=== PATIENT | female | born 1945 | race Caucasian/White ===

== ENCOUNTER 2018-01-11 15:10 | Emergency (ER) | payer OTHER, MEDICARE ==
[2018-01-11] MEDS ORDERED: SODIUM CHLORIDE 1,000 ML IV STA (16:52)
[2018-01-11 17:06] VITALS: BP 154/74; PULSE 62; TEMP 98.1; BMI 19.1
--- NOTE | 2018-01-11 17:17 | PDOC ---
History of Present Illness - General History Source: Patient Exam Limitations: No Limitations - History of Present Illness Initial Comments: 01/11/18 18:25 The patient is a 72 year old female with a significant past medical history of MVP, UTI, and diverticulitis who presents to the emergency department for evaluation of a 1 week history of generalized weakness. The patient reports generalized weakness and dizziness started after having a bowel movement that felt forced in nature after eating breakfast on Thursday of last week (01/04). She reports associated symptoms of lack of appetite, dizziness, and trembling. She states she felt well before that bowel movement. She reports she visited her GI doctor could not attribute any GI disorders and advised her to visit the ED for further evaluation The patient denies chest pain, shortness of breath, headache, and dizziness. Denies fevers, chills, nausea, vomiting, diarrhea, and constipation. Denies dysuria, frequency, urgency, and hematuria. Allergies: Doxycycline, Metronidazole,metronidazole HCl, brimonidine tartrate, and hydromorphone HCl. Past surgical history: Colon resection for Diverticulitis (2011) ileostomy Social history: Former smoker 1972. No reported alcohol or drug use. PCP: Dr. Som Samano ([phone]) GI: Dr. Chapin Harman <Jose Schroeder - Last Filed: 01/11/18 18:25> - General History Source: Patient Exam Limitations: No Limitations <Clif Muniz - Last Filed: 01/11/18 18:58> - General Chief Complaint: Lethargy Stated Complaint: LETHARGIC Time Seen by Provider: 01/11/18 16:39 Past History <Jose Schroeder - Last Filed: 01/11/18 18:25> - Past Medical History Anemia: No Asthma: No Cancer: No Cardiac Disorders: Yes (MVP) CVA: No COPD: No CHF: No Dementia: No Diabetes: No GI Disorders: Yes (DIVERTICULITIS) Disorders: Yes (UTI) HTN: No Hypercholesterolemia: No Liver Disease: No Seizures: No Thyroid Disease: No - Surgical History Abdominal Surgery: Yes (COLON RESECTION, ileostomy 03/03/12) Appendectomy: No Cardiac Surgery: No Cholecystectomy: No Lung Surgery: No Neurologic Surgery: No Orthopedic Surgery: No - Suicide/Smoking/Psychosocial Hx Smoking Status: No Smoking History: Never smoked Have you smoked in the past 12 months: No Number of Cigarettes Smoked Daily: 0 If you are a former smoker, when did you quit?: 1972 Information on smoking cessation initiated: No Hx Alcohol Use: No Drug/Substance Use Hx: No Substance Use Type: None Hx Substance Use Treatment: No <Clif Muniz - Last Filed: 01/11/18 18:58> - Past Medical History Allergies/Adverse Reactions: Allergies Allergy/AdvReac Type Severity Reaction Status Date / Time doxycycline Allergy Severe Rash Verified 01/11/18 16:43 metronidazole [From Flagyl] Allergy Intermediate Low Blood Verified 01/11/18 16: 43 Pressure Metronidazole HCl Allergy Intermediate Verified 01/11/18 16:43 [From Flagyl] brimonidine tartrate Allergy heart Verified 01/11/18 16:43 [From Alphagan P] palpitations hydromorphone HCl AdvReac Severe Low Blood Verified 01/11/18 16:43 [From Dilaudid] Pressure Home Medications: Ambulatory Orders NK [No Known Home Medication] 01/11/18 Review of Systems - Review of Systems Able to Perform ROS?: Yes Comments:: GENERAL/CONSTITUTIONAL: (+)Weakness. No fever or chills. HEAD, EYES, EARS, NOSE AND THROAT: No change in vision. No ear pain or discharge. No sore throat. CARDIOVASCULAR: No chest pain or shortness of breath. RESPIRATORY: No cough, wheezing, or hemoptysis. GASTROINTESTINAL: No nausea, vomiting, diarrhea or constipation. GENITOURINARY: No dysuria, frequency, or change in urination. MUSCULOSKELETAL: No joint or muscle swelling or pain. No neck or back pain. SKIN: No rash NEUROLOGIC: (+)Dizziness. No headache, vertigo, loss of consciousness, or change in strength/sensation. ENDOCRINE: No increased thirst. No abnormal weight change. HEMATOLOGIC/LYMPHATIC: No anemia, easy bleeding, or history of blood clots. ALLERGIC/IMMUNOLOGIC: No hives or skin allergy. <Jose Schroeder - Last Filed: 01/11/18 18:25> *Physical Exam - Vital Signs Last Vital Signs Temp Pulse Resp BP Pulse Ox 98.1 F 62 16 154/74 100 01/11/18 16:39 01/11/18 16:39 01/11/18 16:39 01/11/18 16:39 01/11/18 16:39 - Physical Exam Comments: GENERAL: Awake, alert, and fully oriented, in no acute distress HEAD: No signs of trauma EYES: PERRLA, EOMI, sclera anicteric, conjunctiva clear ENT: Auricles normal inspection, hearing grossly normal, nares patent, Moist mucosa NECK: Normal ROM, supple, no JVD, or masses LUNGS: Breath sounds equal, clear to auscultation bilaterally. No wheezes, and no crackles HEART: Regular rate and rhythm, normal S1 and S2, no murmurs, rubs or gallops ABDOMEN: Soft, nontender. No guarding, no rebound. No masses EXTREMITIES: Normal range of motion, no edema. No clubbing or cyanosis. No cords, erythema, or tenderness NEUROLOGICAL: Cranial nerves II through XII grossly intact. Normal speech, normal gait SKIN: Warm, Dry, normal turgor, no rashes or lesions noted. <Jose Schroeder - Last Filed: 01/11/18 18:25> - Vital Signs Last Vital Signs Temp Pulse Resp BP Pulse Ox 98.1 F 62 16 154/74 100 01/11/18 16:39 01/11/18 16:39 01/11/18 16:39 01/11/18 16:39 01/11/18 16:39 <Clif Muniz - Last Filed: 01/11/18 18:58> Heart Score/ECG Review #1 ECG reviewed & interpreted by me at: 18:00 01/11/18 18:44 NSR 74, no std/eren, normal axis, normal intervals, QTC 437 msec <Clif Muniz - Last Filed: 01/11/18 18:58> ED Treatment Course - LABORATORY CBC & Chemistry Diagram: 01/11/18 17:40 01/11/18 17:40 - ADDITIONAL ORDERS Additional order review: Laboratory Results 01/11/18 01/11/18 01/11/18 17:40 17:40 17:25 PT with INR 12.2 INR 1.09 PTT (Actin FS) 27.5 Sodium 136 Potassium 4.1 Chloride 103 Carbon Dioxide 26 Anion Gap 7 L BUN 10 Creatinine < 0.8 Creat Clearance w eGFR > 60 Random Glucose 103 Calcium 9.1 Magnesium 1.9 Total Bilirubin 0.4 D AST 23 ALT 15 Alkaline Phosphatase 46 Total Protein 6.6 Albumin 4.3 Urine Color Yellow Urine Appearance Clear Urine pH 6.0 Ur Specific [place] <= 1.005 Urine Protein Negative Urine Glucose (UA) Negative Urine Ketones Negative Urine Blood Trace-lysed H Urine Nitrite Negative Urine Bilirubin Negative Urine Urobilinogen 0.2 Ur Leukocyte Esterase Negative Urine RBC 0-2 Urine WBC 0-1 Urine Bacteria Few 01/11/18 17:40 RBC 4.43 MCV 93.3 MCHC 33.7 RDW 12.4 MPV 8.4 Neutrophils % 52.0 Lymphocytes % 37.4 Monocytes % 8.9 Eosinophils % 1.0 Basophils % 0.7 - Medications Given in the ED: ED Medications Discontinued Medications Generic Name Dose Route Start Last Admin Trade Name Freq PRN Reason Stop Dose Admin Sodium Chloride 1,000 mls @ 1,000 mls/hr 01/11/18 16:52 01/11/18 17:40 Normal Saline - IV 01/11/18 17:51 1,000 mls/hr ASDIR STA Administration <Jose Schroeder - Last Filed: 01/11/18 18:25> - LABORATORY CBC & Chemistry Diagram: 01/11/18 17:40 01/11/18 17:40 - RADIOLOGY Radiology Studies Ordered: Category Date Time Status CHEST PA & LAT [RAD] Stat Radiology 01/11/18 16:49 Ordered <Clif Muniz - Last Filed: 01/11/18 18:58> Medical Decision Making - Medical Decision Making 01/11/18 17:13 A portion of this note was documented by scribe services under my direction. I have reviewed the details of the note, within reason, and agree with the documentation with the following case summary and management plan written by me. Patient treated in the ED. Nursing notes are reviewed and incorporated into the medical decision-making. Vital signs reviewed. Peripheral IV access obtained by the nurse, laboratory studies are drawn and sent, reviewed and interpreted by myself. Vital Signs Temp Pulse Resp BP Pulse Ox 98.1 F 62 16 154/74 100 01/11/18 16:39 01/11/18 16:39 01/11/18 16:39 01/11/18 16:39 01/11/18 16:39 72-year-old female with past medical history of diverticulitis status post colon resection, no other medical problems presents with one week of weakness. Patient noted one week ago that she felt generally fatigued and weak without any focal symptoms. The patient states that she went to move her bowels one week ago and since that she can feel generally weak. Denies abdominal pain, chest pain, short of breath, fevers, chills, cough, vomiting, diarrhea, dysuria. Patient had visited her early breastfeeding care specialist, Dr. Chapin Harman, and according to the patient, was unlikely to be related to GI. Patient was sent to the ER for an evaluation. The patient generally weak. Differential includes metabolic disarray, infectious , cardiac, thyroid disorder. We'll obtain blood work including EKG, chest x-ray , labs, urinalysis and reassess. 01/11/18 18:53 CBC, BMP 01/11/18 17:40 01/11/18 17:40 CMP Sodium 136 mmol/L (136-145) 01/11/18 17:40 Potassium 4.1 mmol/L (3.5-5.1) 01/11/18 17:40 Chloride 103 mmol/L (98-107) 01/11/18 17:40 Carbon Dioxide 26 mmol/L (22-28) 01/11/18 17:40 Anion Gap 7 (8-16) L 01/11/18 17:40 BUN 10 mg/dl (7-18) 01/11/18 17:40 Creatinine < 0.8 mg/dl (0.6-1.3) 01/11/18 17:40 Creat Clearance w eGFR > 60 (>60) 01/11/18 17:40 Random Glucose 103 mg/dl (74-106) 01/11/18 17:40 Calcium 9.1 mg/dl (8.4-10.2) 01/11/18 17:40 Magnesium 1.9 mg/dL (1.8-2.4) 01/11/18 17:40 Total Bilirubin 0.6 mg/dl (0.2-1.0) D 01/11/18 17:40 AST 23 U/L (10-42) 01/11/18 17:40 ALT 15 U/L (10-40) 01/11/18 17:40 Alkaline Phosphatase 46 U/L (32-92) 01/11/18 17:40 Troponin I < 0.03 ng/ml (0.00-0.06) 01/11/18 17:40 Total Protein 6.6 g/dl (6.4-8.3) 01/11/18 17:40 Albumin 4.3 g/dl (3.5-5.0) 01/11/18 17:40 Urine Test Results Urine Color Yellow 01/11/18 17:25 Urine Appearance Clear 01/11/18 17:25 Urine pH 6.0 (4.5-8) 01/11/18 17:25 Ur Specific [place] <= 1.005 (1.005-1.025) 01/11/18 17:25 Urine Protein Negative (NEGATIVE) 01/11/18 17:25 Urine Glucose (UA) Negative (NEGATIVE) 01/11/18 17:25 Urine Ketones Negative (NEGATIVE) 01/11/18 17:25 Urine Blood Trace-lysed (NEGATIVE) H 01/11/18 17:25 Urine Nitrite Negative (NEGATIVE) 01/11/18 17:25 Urine Bilirubin Negative (NEGATIVE) 01/11/18 17:25 Ur Leukocyte Esterase Negative (NEGATIVE) 01/11/18 17:25 Urine RBC 0-2 /hpf (0-3) 01/11/18 17:25 Urine WBC 0-1 (0-5) 01/11/18 17:25 Urine Bacteria Few /hpf (NEGATIVE) 01/11/18 17:25 Chest xray reviewed. No acute findings. TSH is still pending. It is unclear what the etiology of the patient's weaknesses. The thyroid panel is still pending but the patient states that she can call back and follow-up with the results. I will touch base with her tomorrow in regards to the thyroid panel. I've instructed the patient to call her primary care doctor tomorrow for rapid follow-up. She developed any chest pain or short of breath that she should return to the ER. There is no acute symptoms at the moment. Will have patient follow up with PMD. Return precautions given. I discussed the physical exam findings, ancillary test results and final diagnoses with the patient. I answered all of the patient's questions. The patient was satisfied with the care received and felt comfortable with the discharge plan and treatment plan. The patient will call their primary care physician within 24 hours to arrange follow-up and will return to the Emergency Department with any new, persistant or worsening symptoms. <Clif Muniz - Last Filed: 01/11/18 18:58> *DC/Admit/Observation/Transfer - Attestations Scribe Attestion: Documentation prepared by Jose Schroeder, acting as medical office technology instructor for Clif Muniz MD. <Jose Schroeder - Last Filed: 01/11/18 18:25> - Discharge Dispostion Admit: No <Clif Muniz - Last Filed: 01/11/18 18:58> Diagnosis at time of Disposition: Weakness - Discharge Dispostion Condition at time of disposition: Stable - Referrals Referrals: Som Samano MD [Primary Care Provider] - - Patient Instructions Printed Discharge Instructions: DI for Muscle Weakness Additional Instructions: Please drink plenty of fluids and rest. Your thyroid panel is still pending. You may call back at [phone] for the official results. It is important that you follow up with Dr. Samano. Call tomorrow to schedule an appointment. If you have chest pain, shortness of breath, fever, please return to the ER for further evaluation. - Post Discharge Activity
[2018-01-11 17:37] LABS: URINE APPEARANCE Clear; URINE BILIRUBIN Negative (NEGATIVE); URINE GLUCOSE (UA) Negative (NEGATIVE); URINE KETONE Negative (NEGATIVE); URINE LEUK ESTERASE Negative (NEGATIVE); URINE NITRITE Negative (NEGATIVE); URINE PROTEIN Negative (NEGATIVE); URINE UROBILINOGEN 0.2 (0.2-1.0)
[2018-01-11 17:39] LABS: URINE COLOR YELLOW
[2018-01-11 18:04] LABS: BASO % 0.7 % (0-2.0); HEMATOCRIT 41.4 % (32.4-45.2); HEMOGLOBIN 13.9 GM/dl (10.7-15.3); LYMPH % 37.4 % (8-40); MCH 31.5 pg (25.7-33.7); MCHC 33.7 g/dl (32.0-36.0); MEAN CELL VOLUME 93.3 fl (80-96); MEAN PLT VOLUME 8.4 fl (7.5-11.1); MONO % 8.9 % (3.8-10.2); PLATELET COUNT 214 K/MM3 (134-434); RBC 4.43 M/mm3 (3.60-5.2); RDW 12.4 % (11.6-15.6)
[2018-01-11 18:14] LABS: ACTIVATED PTT 27.5 SECONDS (24.0-38.9)
[2018-01-11 18:16] LABS: ALBUMIN 4.3 g/dl (3.5-5.0); ALK PHOS 46 U/L (32-92); ANION GAP 7 (8-16); BLOOD UREA NITROGEN 10 mg/dl (7-18); CALCIUM 9.1 mg/dl (8.4-10.2); CHLORIDE 103 mmol/L (98-107); CO2 26 mmol/L (22-28); GLUCOSE,RANDOM 103 mg/dl (74-106); MAGNESIUM 1.9 mg/dL (1.8-2.4); POTASSIUM 4.1 mmol/L (3.5-5.1); SGOT/AST 23 U/L (10-42); SGPT/ALT 15 U/L (10-40); SODIUM 136 mmol/L (136-145); TOT PROT 6.6 g/dl (6.4-8.3)
[2018-01-11 18:18] LABS: CREATININE < 0.8 mg/dl (0.6-1.3)
[2018-01-11 18:19] LABS: INR 1.09 (0.82-1.09); PROTHROMBIN TIME (PATIENT) 12.2 SEC (10.2-13.0)
[2018-01-11 18:25] LABS: URINE BACTERIA FEW /hpf (NEGATIVE); URINE RBC 0-2 /hpf (0-3); URINE WBC 0-1 (0-5)
[2018-01-11 18:38] LABS: BILIRUBIN,TOTAL 0.6 mg/dl (0.2-1.0)
--- NOTE | 2018-01-12 09:56 | EKG ---
Test Reason : Blood Pressure : / mmHG Vent. Rate : 074 BPM Atrial Rate : 074 BPM P-R Int : 180 ms QRS Dur : 090 ms QT Int : 394 ms P-R-T Axes : 068 -03 063 degrees QTc Int : 437 ms NORMAL SINUS RHYTHM NORMAL ECG NO PREVIOUS ECGS AVAILABLE Confirmed by MD Magdalena, Bill ([id number]) on 01/12/2018 9:56:00 AM Referred By: LISA Confirmed By:Bill Nichols MD
== END 2018-01-11 19:09 | disposition home or self-care (01) ==
LOC: FER 15:10
PROC: 3E0337Z Introduction of Electrolytic and Water Balance Substance into Peripheral Vein, Percutaneous Approach (ICD-10-PCS; principal; 2018-01-11)
DX: M62.81 Muscle weakness (generalized) (principal); I34.1 Nonrheumatic mitral (valve) prolapse; Z87.440 Personal history of urinary (tract) infections; Z88.8 Allergy status to other drugs, medicaments and biological substances
CPT/HCPCS: 36415; 71046-TC-FY; 80053; 81003; 81015; 83735; 84443; 84484; 85025; 85610; 85730; 87086; 93005; 96360; 99284-25; J7030

== ENCOUNTER 2018-03-04 05:42 | Emergency (ER) | payer OTHER, MEDICARE ==
[2018-03-04 05:52] VITALS: BMI 19.1
--- NOTE | 2018-03-04 06:51 | PDOC ---
History of Present Illness - General History Source: Patient Exam Limitations: No Limitations - History of Present Illness Initial Comments: 03/04/18 06:51 This is a 72-year-old female with history of vasovagal syncope in the past who has been experiencing GI discomfort bloating gas and intermittent diarrhea over the past several months. Patient saw her primary care Dr. Dr. Samano wouldn't take her to get a CAT scan. Patient was drinking the oral contrast when she began to feel nauseous and headed down the torres towards the bathroom and on her way to the bathroom she said she passed out. Patient did not hit her head. Thinks she was out less than a minute and did not injure herself. Patient denied any chest pain, shortness of breath. Patient said she has been very weak because she is been unable to eat secondary to her GI issues. PAST MEDICAL HISTORY: no significant history PAST SURGICAL HISTORY: no significant history FAMILY HISTORY: no pertinant history SOCIAL HISTORY: Pt lives with family and is employed. MEDICATIONS: reviewed ALLERGIES: As per nursing notes Review of Systems General: No fevers or chills, no weakness, no weight loss HEENT: No change in vision. No sore throat,. No ear pain CardioVascular: No chest pain or shortness of breath Respiratory:No cough, or wheezing. Gastrointestinal: + nausea, vomitting, diarrhea or constipation, No rectal bleeding Genitourinary: No dysuria, hematuria, or frequency Musculoskeletal: No joint or muscle pain or swelling Neurologic: No headache, vertigo, syncope as per history of present illness Psychiatric: nor depression Skin: No rashes or easy bruising Endocrine: no increased thirst or abnormal weight change Allergic: no skin or latex allergy All other systems reviewed and normal Exam: General: Well-nourished well-developed individual, no acute distress HEENT: Throat: Normal, tonsils normal, no erythema or exudate Neck: Supple, no meningeal signs, no lymphadenopathy Eyes::Pupils equal reactive and round, extraocular motion intact Chest: Nontender to palpation Cardiac: S1-S2 normal, regular rate and rhythm, no murmurs rubs or gallops, bradycardic Respiratory: Lungs clear to auscultation bilateral Abdomen: Soft, nondistended, normal bowel sounds, nontender to palpation diffusely Extremities: Warm, dry, no cyanosis, clubbing, or edema Skin: No rashes Neuro: Alert and oriented x3, CN II - XII intact, nonfocal exam with normal strength, normal sensation, normal reflexes, normal gait, Psych: Normal mood and affect 07:00 because patient is transferred to Dr. Chao at 7 AM. Her workup is still pending. Case discussed in detail with oncoming Emergency Physician including history, physical exam and ancillary studies. Oncoming Emergency Physician has assumed care for the patient and will complete the evaluation and treatment. Patient is aware of the plan. Pt is clinically unchanged and stable. <Vicky Abrams I - Last Filed: 03/04/18 06:34> <Tahira Hidalgo - Last Filed: 03/04/18 10:46> - General Chief Complaint: Weakness Stated Complaint: "I PASSED OUT WHILE DOING A TEST PREP" Time Seen by Provider: 03/04/18 06:34 Past History - Past Medical History Anemia: No Asthma: No Cancer: No Cardiac Disorders: Yes (MVP) CVA: No COPD: No CHF: No Dementia: No Diabetes: No GI Disorders: Yes (DIVERTICULITIS) Disorders: Yes (UTI) HTN: No Hypercholesterolemia: No Liver Disease: No Seizures: No Thyroid Disease: No - Surgical History Abdominal Surgery: Yes (COLON RESECTION, ileostomy 03/03/12) Appendectomy: No Cardiac Surgery: No Cholecystectomy: No Lung Surgery: No Neurologic Surgery: No Orthopedic Surgery: No - Suicide/Smoking/Psychosocial Hx Smoking Status: No Smoking History: Never smoked Have you smoked in the past 12 months: No Number of Cigarettes Smoked Daily: 0 If you are a former smoker, when did you quit?: 1972 Information on smoking cessation initiated: No Hx Alcohol Use: No Drug/Substance Use Hx: No Substance Use Type: None Hx Substance Use Treatment: No <Vicky Abrams I - Last Filed: 03/04/18 06:34> <Tahira Hidalgo - Last Filed: 03/04/18 10:46> - Past Medical History Allergies/Adverse Reactions: Allergies Allergy/AdvReac Type Severity Reaction Status Date / Time doxycycline Allergy Severe Rash Verified 01/11/18 16:43 metronidazole [From Flagyl] Allergy Intermediate Low Blood Verified 01/11/18 16: 43 Pressure Metronidazole HCl Allergy Intermediate Verified 01/11/18 16:43 [From Flagyl] brimonidine tartrate Allergy heart Verified 01/11/18 16:43 [From Alphagan P] palpitations hydromorphone HCl AdvReac Severe Low Blood Verified 01/11/18 16:43 [From Dilaudid] Pressure Home Medications: Ambulatory Orders NK [No Known Home Medication] 01/11/18 *Physical Exam - Vital Signs Last Vital Signs Temp Pulse Resp BP Pulse Ox 98 F 50 L 14 122/46 98 03/04/18 05:49 03/04/18 05:49 03/04/18 05:49 03/04/18 05:49 03/04/18 05:49 <Vicky Abrams I - Last Filed: 03/04/18 06:34> - Vital Signs Last Vital Signs Temp Pulse Resp BP Pulse Ox 98.1 F 64 16 143/62 99 03/04/18 10:14 03/04/18 10:14 03/04/18 10:14 03/04/18 10:14 03/04/18 10:14 <Tahira Hidalgo - Last Filed: 03/04/18 10:46> Heart Score/ECG Review - ECG Impressions Comment:: EKG read 07:47- NSR 63 bpm, no acute ST/T changes <Tahira Hidalgo - Last Filed: 03/04/18 10:46> ED Treatment Course - LABORATORY CBC & Chemistry Diagram: 03/04/18 06:42 03/04/18 06:42 - ADDITIONAL ORDERS Additional order review: Laboratory Results 03/04/18 03/04/18 03/04/18 09:00 06:45 06:42 Sodium Potassium Chloride Carbon Dioxide Anion Gap BUN Creatinine Creat Clearance w eGFR Random Glucose Calcium Total Bilirubin AST ALT Alkaline Phosphatase Creatine Kinase 62 Troponin I < 0.03 Total Protein Albumin Urine Color Nancy Urine Appearance Clear Urine pH 5.5 Ur Specific [place] 1.010 Urine Protein Negative Urine Glucose (UA) Negative Urine Ketones 1+ H Urine Blood 1+ H Urine Nitrite Negative Urine Bilirubin Negative Urine Urobilinogen 0.2 Ur Leukocyte Esterase Negative Urine RBC 1-3 Urine WBC 0-1 03/04/18 06:42 Sodium 137 Potassium 4.1 Chloride 106 Carbon Dioxide 26 Anion Gap 5 L BUN 13 Creatinine 0.7 Creat Clearance w eGFR > 60 Random Glucose 104 Calcium 9.0 Total Bilirubin 1.1 H AST 24 ALT 17 Alkaline Phosphatase 41 Creatine Kinase Troponin I Total Protein 6.7 Albumin 4.1 Urine Color Urine Appearance Urine pH Ur Specific [place] Urine Protein Urine Glucose (UA) Urine Ketones Urine Blood Urine Nitrite Urine Bilirubin Urine Urobilinogen Ur Leukocyte Esterase Urine RBC Urine WBC 03/04/18 06:42 RBC 4.38 MCV 94.8 MCHC 33.2 RDW 13.1 MPV 7.6 Neutrophils % 63.9 Lymphocytes % 26.7 Monocytes % 7.6 Eosinophils % 1.2 Basophils % 0.6 <Tahira Hidalgo - Last Filed: 03/04/18 10:46> Medical Decision Making - Medical Decision Making 03/04/18 10:19 Late entry. Patient received at 7am shift change. She presented with syncopal event just [employer]. Hx of prior similar events. Labs reviewed, all wnl. CTH reviewed , no acute findings. Awaiting CT a/p read. 03/04/18 10:46 CT read by radiology. Questionable cystic structure in the pelvis, otherwise normal. Stable for DC home. <Tahira Hidalgo - Last Filed: 03/04/18 10:46> *DC/Admit/Observation/Transfer <Vicky Abrams I - Last Filed: 03/04/18 06:34> - Discharge Dispostion Decision to Admit order: No <Tahira Hidalgo - Last Filed: 03/04/18 10:46> Diagnosis at time of Disposition: Syncope Qualifiers: Syncope type: unspecified Qualified Code(s): R55 - Syncope and collapse - Discharge Dispostion Disposition: HOME Condition at time of disposition: Stable - Referrals Referrals: Som Samano MD [Primary Care Provider] - - Patient Instructions Printed Discharge Instructions: DI for Syncope in Adults (Fainting) - Post Discharge Activity
[2018-03-04 07:33] LABS: ALBUMIN 4.1 g/dl (3.5-5.0); ALK PHOS 41 U/L (32-92); ANION GAP 5 (8-16); BILIRUBIN,TOTAL 1.1 mg/dl (0.2-1.0); BLOOD UREA NITROGEN 13 mg/dl (7-18); CHLORIDE 106 mmol/L (98-107); CO2 26 mmol/L (22-28); CREATININE 0.7 mg/dl (0.6-1.3); GLUCOSE,RANDOM 104 mg/dl (74-106); POTASSIUM 4.1 mmol/L (3.5-5.1); SGOT/AST 24 U/L (10-42); SGPT/ALT 17 U/L (10-40); SODIUM 137 mmol/L (136-145); TOT PROT 6.7 g/dl (6.4-8.3)
[2018-03-04 07:37] LABS: BASO % 0.6 % (0-2.0); EOS % 1.2 % (0-4.5); HEMATOCRIT 41.5 % (32.4-45.2); HEMOGLOBIN 13.8 GM/dl (10.7-15.3); LYMPH % 26.7 % (8-40); MCH 31.4 pg (25.7-33.7); MCHC 33.2 g/dl (32.0-36.0); MEAN CELL VOLUME 94.8 fl (80-96); MEAN PLT VOLUME 7.6 fl (7.5-11.1); MONO % 7.6 % (3.8-10.2); NEUT % 63.9 % (42.8-82.8); PLATELET COUNT 204 K/MM3 (134-434); RBC 4.38 M/mm3 (3.60-5.2); RDW 13.1 % (11.6-15.6)
[2018-03-04 09:23] LABS: PH,URINE 5.5 (4.5-8); URINE APPEARANCE Clear; URINE BILIRUBIN Negative (NEGATIVE); URINE COLOR AMBER; URINE GLUCOSE (UA) Negative (NEGATIVE); URINE KETONE 1+ (NEGATIVE); URINE LEUK ESTERASE Negative (NEGATIVE); URINE NITRITE Negative (NEGATIVE); URINE PROTEIN Negative (NEGATIVE); URINE UROBILINOGEN 0.2 (0.2-1.0)
[2018-03-04 10:04] LABS: URINE WBC 0-1 (0-5)
[2018-03-04 10:15] VITALS: BP 143/62; PULSE 64; TEMP 98.1
--- NOTE | 2018-03-06 09:43 | EKG ---
Test Reason : Blood Pressure : / mmHG Vent. Rate : 063 BPM Atrial Rate : 063 BPM P-R Int : 166 ms QRS Dur : 092 ms QT Int : 444 ms P-R-T Axes : 081 016 076 degrees QTc Int : 454 ms NORMAL SINUS RHYTHM NON-SPECIFIC INTRA-VENTRICULAR CONDUCTION DELAY WHEN COMPARED WITH ECG OF 11-JAN-2018 18:01, NO SIGNIFICANT CHANGE WAS FOUND Confirmed by ALEE VERAS MD ([id number]) on 03/06/2018 9:42:55 AM Referred By: ERICA RICHEY Confirmed By:ALEE VERAS MD
== END 2018-03-04 10:55 | disposition home or self-care (01) ==
LOC: FER 05:42
DX: R55 Syncope and collapse (principal); I34.1 Nonrheumatic mitral (valve) prolapse; Z87.440 Personal history of urinary (tract) infections; Z88.8 Allergy status to other drugs, medicaments and biological substances
CPT/HCPCS: 36415; 70450-TC; 74176-TC; 80053; 81003; 81015; 82550; 84484; 85025; 93005; 99283-25

== ENCOUNTER 2018-07-26 08:04 | Day surgery (SDC) | payer OTHER, MEDICARE ==
[2018-07-23 14:33] VITALS: BMI 19.7
[2018-07-26] MEDS ORDERED: LIDOCAINE HCL/PF 2% SDV 5ML VIAL ONE (08:43)
[2018-07-26] MEDS ORDERED: PROPOFOL 20 ML ONE ×2 (08:43)
[2018-07-26 09:26] VITALS: TEMP 98
[2018-07-26 09:58] VITALS: BP 130/70; PULSE 67
--- NOTE | 2018-07-30 14:40 | PATH ---
Surgical Pathology Report Patient Name: MERLINE BLOCK [facility]. Rec. #: [id number] /Age/Gender: 1945 (Age: 73) / F Account: [id number] Location: [facility] AMBULATORY Taken: 07/26/2018 Received: 07/26/2018 Reported: 07/30/2018 Physicians: Chapni Harman M.D. Specimen(s) Received A: BX DUODENUM B: BX ANTRUM Clinical History GERD Postoperative diagnosis: Gastritis Final Diagnosis A. DUODENUM, BIOPSY: DUODENAL MUCOSA WITH NO PATHOLOGIC FINDINGS. B. ANTRUM, BIOPSY: MILD CHRONIC GASTRITIS. IMMUNOSTAIN IS NEGATIVE FOR H. PYLORI ORGANISMS. Electronically Signed Nancy Nguyễn M.D. Gross Description A. Received in formalin, labeled "biopsy duodenum" are 2 fleming, irregular portions of soft tissue averaging 0.4 cm. in greatest dimension. The specimens are submitted in toto in one cassette. B. Received in formalin, labeled "biopsy antrum" are 2 fleming, irregular portions of soft tissue measuring 0.3 and 0.5 cm. in greatest dimension. The specimens are submitted in toto in one cassette. DL07/26/2018 saudi07/26/2018
== END 2018-07-26 09:55 | disposition home or self-care (01) ==
LOC: FASU 08:04
PROVIDERS: ATTEND Internal Medicine Gastroenterology
PROC: 0DB68ZX Excision of Stomach, Via Natural or Artificial Opening Endoscopic, Diagnostic (ICD-10-PCS; 2018-07-26)
PROC: 0DB98ZX Excision of Duodenum, Via Natural or Artificial Opening Endoscopic, Diagnostic (ICD-10-PCS; principal; 2018-07-26 09:07)
DX: K29.50 Unspecified chronic gastritis without bleeding (principal); R12 Heartburn
CPT/HCPCS: 88305-TC; 88342-TC

== ENCOUNTER 2018-09-07 14:18 | Emergency (ER) | payer OTHER, MEDICARE ==
[2018-09-07 14:35] VITALS: TEMP 97.6; BMI 19.6
[2018-09-07 14:53] VITALS: BP 129/56; PULSE 74
[2018-09-07 15:19] LABS: BASO % 0.7 % (0-2.0); HEMATOCRIT 33.8 % (32.4-45.2); HEMOGLOBIN 11.1 GM/dl (10.7-15.3); LYMPH % 28.8 % (8-40); MCH 31.4 pg (25.7-33.7); MCHC 32.7 g/dl (32.0-36.0); NEUT % 61.5 % (42.8-82.8); PLATELET COUNT 180 K/MM3 (134-434); RBC 3.52 M/mm3 (3.60-5.2); WHITE BLOOD COUNT 4.5 K/mm3 (4.0-10.8)
--- NOTE | 2018-09-07 15:20 | PDOC ---
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 Patient reports experiencing diffuse abdominal pain this afternoon after eating a large meal, prompting her to take a seat. She reports experiencing lightheadedness shortly after, followed by a syncopal episode. Patient reports her than helped her to the restroom after she began to feel the need to move her bowels when she experienced her second syncopal episode. She reports her states her eyes rolled back during her syncopal episode, prompting him to call EMS to have the patient sent into the ED for further evaluation. As per EMS, patient did not experience any head trauma during her episodes, and her Blood glucose level was found to be 126 on scene. Patient reports taking a dose of Xanax this morning for her anxiety. Denies chest pain, Sob. Denies nausea, vomiting. Denies fevers, chills. Denies contact with sick individuals, out of state travelling. Denies any other symptoms. Allergies: doxycycline, metronidazole,Metronidazole, brimonidine tartrate, hydromorphone HCl Social history: Former smoker (Last 1972) No alcohol. No illicit drugs. Surgical history: Colon resection, ileostomy 03/03/12 PCP: Dr. Som Samano ([phone]) GI: Dr. Chapin Harman Adult ROS CONSTITUTIONAL: +Syncope. Absent: Fever, Chills, Diaphoresis, Loss of Appetite HEENT: +Head pain. Absent: Rhinorrhea, Nasal Congestion, Throat Pain, Throat Swelling, Difficulty Swallowing, Mouth Swelling, Ear Pain, Eye Pain, Visual Changes CARDIOVASCULAR: Absent: Chest Pain, Syncope, Palpitations, Irregular Heart Rate, Lightheadedness , Peripheral Edema RESPIRATORY: Absent: Cough, Shortness of Breath, SOB with Exertion, Orthopnea, Wheezing, Stridor, Hemoptysis GASTROINTESTINAL: +Epigastric pain. Absent: Abdominal Distension, Nausea, Vomiting, Diarrhea, Constipation, Melena, Hematochezia GENITOURINARY: Absent: Dysuria, Frequency, Urgency, Hesitancy, Flank Pain, Genital Pain MUSCULOSKELETAL: Absent: Myalgia, Arthralgia, Joint Swelling, Back pain, Neck Pain SKIN: Absent: Rash, Itching, PalloR HEMATOLOGIC/IMMUNOLOGIC: Absent: Easy Bleeding, Easy Bruising, Lymphadenopathy, Frequent infections ENDOCRINE: Absent: Unexplained Weight Gain, Unexplained Weight Loss, Heat Intolerance, Cold Intolerance Adult PE GENERAL: The patient is awake, alert, and fully oriented, in no acute distress. HEAD: Normal with no signs of trauma. EYES: Pupils equal, round and reactive to light, extraocular movements intact, sclera anicteric, conjunctiva clear. ENT: Ears normal, nares patent, oropharynx clear without exudates. Moist mucous membranes. NECK: Normal range of motion, supple without lymphadenopathy, JVD, or masses. LUNGS: Breath sounds equal, clear to auscultation bilaterally. No wheezes, and no crackles. HEART: +Mid systolic click in cardiac exam. Regular rate and rhythm, normal S1 and S2 without murmur, rub or gallop. ABDOMEN: Soft, nontender, normoactive bowel sounds. No guarding, no rebound. No masses. EXTREMITIES: Normal range of motion, no edema. No clubbing or cyanosis. No cords , erythema, or tenderness. NEUROLOGICAL: Cranial nerves II through XII grossly intact. Normal speech, normal gait. PSYCH: Normal mood, normal affect. SKIN: Warm, Dry, normal turgor, no rashes or lesions noted. <Momo Ansari - Last Filed: 09/07/18 16:04> <Andrew Maya - Last Filed: 09/07/18 16:38> - General Chief Complaint: Syncope/Near Syncope Stated Complaint: SYNCOPE Time Seen by Provider: 09/07/18 14:19 Past History <Momo Ansari - Last Filed: 09/07/18 16:04> - Past Medical History Anemia: No Asthma: No Cancer: No Cardiac Disorders: Yes (MVP) CVA: No COPD: No CHF: No Dementia: No Diabetes: No GI Disorders: Yes (DIVERTICULITIS) Disorders: Yes HTN: No Hypercholesterolemia: No Liver Disease: No Seizures: No Thyroid Disease: No - Surgical History Abdominal Surgery: Yes (COLON RESECTION, ileostomy 03/03/12, CLOSURE OF ILEOSTOMY 2012) Appendectomy: No Cardiac Surgery: No Cholecystectomy: No Lung Surgery: No Neurologic Surgery: No Orthopedic Surgery: No - Suicide/Smoking/Psychosocial Hx Smoking Status: No Smoking History: Never smoked Have you smoked in the past 12 months: No Number of Cigarettes Smoked Daily: 0 If you are a former smoker, when did you quit?: 1972 Hx Alcohol Use: No Drug/Substance Use Hx: No Substance Use Type: None Hx Substance Use Treatment: No <Andrew Maya - Last Filed: 09/07/18 16:38> - Past Medical History Allergies/Adverse Reactions: Allergies Allergy/AdvReac Type Severity Reaction Status Date / Time brimonidine tartrate Allergy Severe heart Verified 09/07/18 14:28 [From Alphagan P] palpitations doxycycline Allergy Severe Rash Verified 09/07/18 14:28 metronidazole [From Flagyl] Allergy Intermediate Low Blood Verified 09/07/18 14: 28 Pressure Metronidazole HCl Allergy Intermediate Verified 09/07/18 14:28 [From Flagyl] hydromorphone HCl AdvReac Severe Low Blood Verified 09/07/18 14:28 [From Dilaudid] Pressure Home Medications: Ambulatory Orders Alprazolam [Xanax] 0.25 mg PO DAILY 07/23/18 Pantoprazole Sodium 40 mg PO DAILY 07/23/18 Docusate Sodium [Colace] 100 mg PO BID 07/26/18 Calcium Carbonate - 650 mg PO BID #60 tablet 09/07/18 *Physical Exam - Vital Signs Last Vital Signs Temp Pulse Resp BP Pulse Ox 97.6 F 74 15 129/56 L 99 09/07/18 14:19 09/07/18 14:52 09/07/18 14:52 09/07/18 14:52 09/07/18 14:52 <Momo Ansari - Last Filed: 09/07/18 16:04> - Vital Signs Last Vital Signs Temp Pulse Resp BP Pulse Ox 97.6 F 74 15 129/56 L 99 09/07/18 14:19 09/07/18 14:52 09/07/18 14:52 09/07/18 14:52 09/07/18 14:52 <Andrew Maya - Last Filed: 09/07/18 16:38> Moderate Sedation - Procedure Monitoring Vital Signs: Procedure Monitoring Vital Signs Temperature 97.6 F 09/07/18 14:19 Pulse Rate 74 09/07/18 14:52 Respiratory Rate 15 09/07/18 14:52 Blood Pressure 129/56 L 09/07/18 14:52 O2 Sat by Pulse Oximetry (%) 99 09/07/18 14:52 <Momo Ansari - Last Filed: 09/07/18 16:04> - Procedure Monitoring Vital Signs: Procedure Monitoring Vital Signs Temperature 97.6 F 09/07/18 14:19 Pulse Rate 74 09/07/18 14:52 Respiratory Rate 15 09/07/18 14:52 Blood Pressure 129/56 L 09/07/18 14:52 O2 Sat by Pulse Oximetry (%) 99 09/07/18 14:52 <Andrew Maya - Last Filed: 09/07/18 16:38> Heart Score/ECG Review - ECG Impressions Comment:: 09/07/18 16:22 Twelve-lead EKG shows normal sinus rhythm at a rate of 71 bpm. The axis is normal. The intervals are normal. There are no acute ST elevations or depressions. Impression: Twelve-lead EKG is normal. <Andrew Maya - Last Filed: 09/07/18 16:38> ED Treatment Course - LABORATORY CBC & Chemistry Diagram: 09/07/18 15:10 09/07/18 15:10 - ADDITIONAL ORDERS Additional order review: 09/07/18 15:10 RBC 3.52 L MCV 96.0 MCHC 32.7 RDW 13.0 MPV 8.0 Neutrophils % 61.5 Lymphocytes % 28.8 Monocytes % 8.0 Eosinophils % 1.0 Basophils % 0.7 <Momo Ansari - Last Filed: 09/07/18 16:04> - LABORATORY CBC & Chemistry Diagram: 09/07/18 15:10 09/07/18 15:10 - RADIOLOGY Radiology Studies Ordered: Category Date Time Status HEAD CT WITHOUT CONTRAST [CT] Stat CT Scan 09/07/18 14:57 Ordered CHEST X-RAY PORTABLE* [RAD] Stat Radiology 09/07/18 14:57 Taken <Andrew Maya - Last Filed: 09/07/18 16:38> Medical Decision Making - Medical Decision Making 09/07/18 16:22 73-year-old female presents after 2 syncopal episodes at home today. Patient has a history of vasovagal syncope and has been worked up in the past. Her states she's had more than half a dozen episodes similar to today. She was sitting at the dining room table and she developed an epigastric discomfort followed by a feeling of lightheadedness and diaphoresis, followed by transient syncope for a few seconds. She put her head down on the table gently, and did not get injured. She felt a little bit better and tried to get up to the bathroom, with assistance of family, but she again had an episode of lightheadedness and transient syncope while being held up by her family. She did not fall. There was no chest pain, palpitations, shortness of breath, incontinence, or seizure activity. This episode was similar to prior episodes in that she had epigastric discomfort at the onset. Sometimes she gets the syncope related to a bowel movement. On examination, the cardiopulmonary exam is normal. Neurological exam is normal. Twelve-lead EKG is normal. Laboratory studies reviewed. The patient has borderline anemia, and hypoalbuminemia which she has had in the past. Her calcium is low in the setting of low albumin, corrected calcium is 8.3. Her glucose is mildly elevated, but this was a nonfasting glucose. Impression: Recurrence of vasovagal syncope. Work up negative, stable for discharge. Laboratory Results - last 24 hr 09/07/18 09/07/18 09/07/18 15:10 15:10 15:30 WBC 4.5 RBC 3.52 L Hgb 11.1 Hct 33.8 D MCV 96.0 MCH 31.4 MCHC 32.7 RDW 13.0 Plt Count 180 MPV 8.0 Absolute Neuts (auto) 2.8 Neutrophils % 61.5 Lymphocytes % 28.8 Monocytes % 8.0 Eosinophils % 1.0 Basophils % 0.7 Sodium 137 Potassium 3.5 Chloride 110 H Carbon Dioxide 23 Anion Gap 4 L BUN 15 Creatinine 0.7 Creat Clearance w eGFR > 60 Random Glucose 150 H D Calcium 7.7 L Total Bilirubin 0.2 AST 20 ALT 13 Alkaline Phosphatase 41 Troponin I < 0.03 Total Protein 5.1 L Albumin 3.2 L <Andrew Maya - Last Filed: 09/07/18 16:38> *DC/Admit/Observation/Transfer - Attestations Scribe Attestion: 09/07/18 15:36 Documentation prepared by Momo Ansari, acting as medical office scheduler for Andrew Maya MD. <Momo Ansari - Last Filed: 09/07/18 16:04> - Discharge Dispostion Decision to Admit order: No - Attestations Physician Attestion: 09/07/18 16:38 The scribe's documentation has been prepared under my direction and personally reviewed by me in its entirety. I have confirmed that the note above accurately reflects all work, treatment, procedures, and medical decision- making performed by me. <Andrew Maya - Last Filed: 09/07/18 16:38> Diagnosis at time of Disposition: Vaso vagal episode - Discharge Dispostion Disposition: HOME Condition at time of disposition: Improved - Prescriptions Prescriptions: Calcium Carbonate - 650 mg PO BID #60 tablet - Referrals Referrals: Som Samano MD [Primary Care Provider] - - Patient Instructions Printed Discharge Instructions: DI for Syncope in Adults (Fainting) Additional Instructions: Today you were evaluated for passing out. Your recent echocardiogram was normal. Your tests today including the EKG and blood work was good. Your calcium level was slightly low but is likely unrelated to your episodes. A calcium prescription has been sent to the pharmacy to take twice a day. Follow- up with your primary care physician next week. Return to the emergency department for any severe or progressive symptoms. - Post Discharge Activity
[2018-09-07 15:51] LABS: ALBUMIN 3.2 g/dl (3.5-5.0); ALK PHOS 41 U/L (32-92); ANION GAP 4 MMOL/L (8-16); BILIRUBIN,TOTAL 0.2 mg/dl (0.2-1.0); BLOOD UREA NITROGEN 15 mg/dl (7-18); CALCIUM 7.7 mg/dl (8.4-10.2); CHLORIDE 110 mmol/L (98-107); CO2 23 mmol/L (22-28); CREATININE 0.7 mg/dl (0.6-1.3); GLUCOSE,RANDOM 150 mg/dl (74-106); POTASSIUM 3.5 mmol/L (3.5-5.1); SGOT/AST 20 U/L (10-42); SGPT/ALT 13 U/L (10-40); SODIUM 137 mmol/L (136-145); TOT PROT 5.1 g/dl (6.4-8.3)
--- NOTE | 2018-09-08 19:04 | EKG ---
Test Reason : Blood Pressure : / mmHG Vent. Rate : 071 BPM Atrial Rate : 071 BPM P-R Int : 178 ms QRS Dur : 094 ms QT Int : 430 ms P-R-T Axes : 080 013 064 degrees QTc Int : 467 ms NORMAL SINUS RHYTHM NORMAL ECG WHEN COMPARED WITH ECG OF 04-MAR-2018 07:32, NO SIGNIFICANT CHANGE WAS FOUND Confirmed by MOSHE SHARIF MD ([id number]) on 09/08/2018 7:03:46 PM Referred By: GERARDO AVALOS Confirmed By:MOSHE SHARIF MD
== END 2018-09-07 17:01 | disposition home or self-care (01) ==
LOC: FER 14:18
DX: R55 Syncope and collapse (principal); I34.1 Nonrheumatic mitral (valve) prolapse
CPT/HCPCS: 36415; 70450-TC; 71045-TC-FY; 80053; 84484; 85025; 93005; 99284-25

== ENCOUNTER 2018-09-16 09:00 | Observation (INO) | payer OTHER, MEDICARE ==
--- NOTE | 2018-09-16 09:14 | PDOC ---
History of Present Illness - General Chief Complaint: Syncope/Near Syncope Stated Complaint: FAINTED Time Seen by Provider: 09/16/18 09:07 - History of Present Illness Initial Comments: 09/16/18 10:03 The patient is a 73 year old female with a history of MVP, Diverticulitis, Colon Resection who presents for evaluation of syncope and abdominal pain. The patient reports that she was recently seen at our ED 10 days ago following a syncopal episode. She was discharged after normal labs and head CT and notes that since that visit, she has been experiencing worsening epigastric abdominal pain. She states that she experienced 2 episodes of non-bloody diarrhea with worsening abdominal pain prompting her presentation to the ED for further evaluation. She notes associated nausea and otherwise denies fevers, chills, SOB, chest pain, or changes with urination. Past History - Past Medical History Allergies/Adverse Reactions: Allergies Allergy/AdvReac Type Severity Reaction Status Date / Time brimonidine tartrate Allergy Severe heart Verified 09/07/18 14:28 [From Alphagan P] palpitations doxycycline Allergy Severe Rash Verified 09/07/18 14:28 metronidazole [From Flagyl] Allergy Intermediate Low Blood Verified 09/07/18 14: 28 Pressure Metronidazole HCl Allergy Intermediate Verified 09/07/18 14:28 [From Flagyl] hydromorphone HCl AdvReac Severe Low Blood Verified 09/07/18 14:28 [From Dilaudid] Pressure Home Medications: Ambulatory Orders Alprazolam [Xanax] 0.25 mg PO TID 07/23/18 Pantoprazole Sodium 40 mg PO DAILY 07/23/18 Docusate Sodium [Colace] 100 mg PO BID 07/26/18 Calcium Carbonate - 650 mg PO BID #60 tablet 09/07/18 Anemia: No Asthma: No Cancer: No Cardiac Disorders: Yes (MVP) CVA: No COPD: No CHF: No Dementia: No Diabetes: No GI Disorders: Yes (DIVERTICULITIS) Disorders: Yes HTN: No Hypercholesterolemia: No Liver Disease: No Seizures: No Thyroid Disease: No - Surgical History Abdominal Surgery: Yes (COLON RESECTION, ileostomy 03/03/12, CLOSURE OF ILEOSTOMY 2012) Appendectomy: No Cardiac Surgery: No Cholecystectomy: No Lung Surgery: No Neurologic Surgery: No Orthopedic Surgery: No - Suicide/Smoking/Psychosocial Hx Smoking Status: No Smoking History: Never smoked Have you smoked in the past 12 months: No Number of Cigarettes Smoked Daily: 0 If you are a former smoker, when did you quit?: 1973 Hx Alcohol Use: No Drug/Substance Use Hx: No Substance Use Type: None Hx Substance Use Treatment: No Review of Systems - Review of Systems Comments:: 09/16/18 10:07 Constitutional: No fevers, chills, fatigue, malaise HEENT: No Rhinorrhea, nasal congestion, visual changes Cardiovascular: Syncope. No chest pain, palpitations, lightheadedness Respiratory: No Cough, SOB, Hemoptysis, Gastrointestinal: Abdominal pain, nausea, diarrhea. No Vomiting, Constipation, Melena Genitourinary: No Dysuria, Frequency, Urgency, Hesitancy, Hematuria, Flank pain Musculoskeletal: No Myalgia, arthralgia Skin: No rashes, itching, bruising, pallor Neurologic: No Headache, Dizziness, Numbness, Weakness, or Tingling Psychiatric: No Hallucinations. No SI or HI *Physical Exam - Physical Exam Comments: 09/16/18 10:08 General Appearance: Nourished. No Apparent Distress HEENT: No Pharyngeal Erythema, Tonsillar Exudate, Tonsillar Erythema Neck: No Cervical Lymphadenopathy Respiratory/Chest: Lungs Clear, Normal Breath Sounds. No Crackles, Rales, Rhonchi, Wheezing Cardiovascular: Regular Rhythm, Regular Rate. No Murmur, Gallops, Rubs Gastrointestinal/Abdominal: Normal Bowel Sounds, Soft. Epigastric discomfort with palpation on exam. No Guarding, Rebound, Musculoskeletal: No CVA Tenderness Extremity: Normal Capillary Refill Integumentary: Normal Color, Dry, Warm Neurologic: Fully Oriented, Alert, Normal Mood/Affect, Normal Response, ED Treatment Course - LABORATORY CBC & Chemistry Diagram: 09/16/18 09:50 09/16/18 09:50 Medical Decision Making - Medical Decision Making 09/16/18 10:08 The patient is a 73 year old female with a history of MVP, Diverticulitis, Colon Resection who presents for evaluation of syncope and abdominal pain. Given the patient's history and physical exam, we will obtain a cbc, cmp, lipase , troponin, ekg, CT abdomen/pelvis, to evaluate further. We will treat with iv fluids and continue to monitor and reassess while here in the ED. 09/16/18 13:08 CBC, cmp, lipase, troponin are unremarkable. CT abdomen/pelvis is unremarkable as read by our radiologist. Given the patient's frequent syncopal episodes with associated persistent abdominal pain, we believe she requires observation admission for further management. We discussed the case with the admitting team who accepted the patient for admission. *DC/Admit/Observation/Transfer Diagnosis at time of Disposition: Abdominal pain Qualifiers: Abdominal location: unspecified location Qualified Code(s): R10.9 - Unspecified abdominal pain Syncope Qualifiers: Syncope type: unspecified Qualified Code(s): R55 - Syncope and collapse - Discharge Dispostion Condition at time of disposition: Stable Decision to Admit order: Yes - Referrals Referrals: Som Samano MD [Primary Care Provider] - - Patient Instructions - Post Discharge Activity
[2018-09-16 10:14] LABS: EOS % 0.5 % (0-4.5); HEMATOCRIT 41.4 % (32.4-45.2); HEMOGLOBIN 13.5 GM/dl (10.7-15.3); LYMPH % 19.1 % (8-40); MCH 31.2 pg (25.7-33.7); MCHC 32.6 g/dl (32.0-36.0); MEAN CELL VOLUME 95.7 fl (80-96); MEAN PLT VOLUME 8.2 fl (7.5-11.1); MONO % 9.8 % (3.8-10.2); NEUT % 69.6 % (42.8-82.8); PLATELET COUNT 239 K/MM3 (134-434); RBC 4.33 M/mm3 (3.60-5.2); RDW 12.3 % (11.6-15.6); WHITE BLOOD COUNT 4.9 K/mm3 (4.0-10.8)
[2018-09-16] MEDS ORDERED: SODIUM CHLORIDE 1,000 ML IV STA (10:18)
[2018-09-16 10:20] LABS: ACTIVATED PTT 23.7 SECONDS (25.2-36.5)
--- NOTE | 2018-09-16 10:22 | PDOC ---
Attending Attestation - Resident Resident Name: Ana RosaEdward - ED Attending Attestation I have performed the following: I have examined & evaluated the patient, The case was reviewed & discussed with the resident, I agree w/resident's findings & plan, Exceptions are as noted - HPI HPI: 09/16/18 10:19 73 year old female c/ hx of diverticulitis s/p partial colon resection presents with syncope and abdominal pain. The patient was here on 09/07 for similar complaints. At that time, pt developed upper abdominal pain and had feinted multiple times at home. Had a workup completed including head CT and chest xray, and pt was cleared for discharged, as presumed vasovagal syncope. However, continued to have daily upper intermittent pressure epigastric pain with nausea. Continues to move her bowels. Pain would come several minutes to hours at a time. Decreased appetite. Unclear what improves pain or worsens pain. At times, pain causes patient to feel lightheaded. Denies chest pain. Today, the pain significantly worsened and pt had two large loose bowel movements. Was sitting at a table when she had another syncopal episode. Came into ER for an evaluation. - Physicial Exam PE: 09/16/18 10:22 GENERAL: Awake, alert, and fully oriented, in no acute distress HEAD: No signs of trauma EYES: EOMI, sclera anicteric, conjunctiva clear ENT: Auricles normal inspection, hearing grossly normal, nares patent, Moist mucosa NECK: Normal ROM, supple, LUNGS: Breath sounds equal, clear to auscultation bilaterally. No wheezes, and no crackles HEART: Regular rate and rhythm, normal S1 and S2, no murmurs, rubs or gallops ABDOMEN: Soft, nontender, No guarding, no rebound. No masses EXTREMITIES: Normal range of motion, no edema. No clubbing or cyanosis. No cords, erythema, or tenderness NEUROLOGICAL: Cranial nerves II through XII grossly intact. Normal speech SKIN: Warm, Dry, normal turgor, no rashes or lesions noted. - Medical Decision Making 09/16/18 10:22 Vital Signs Temp Pulse Resp BP Pulse Ox 97.9 F 52 L 16 118/48 L 99 09/16/18 09:06 09/16/18 09:06 09/16/18 09:06 09/16/18 09:06 09/16/18 09:06 73 year old female c/ colon resection p/w persistent abdominal pain x 10 days. The syncope is likely 2/2 vasovagal, however, what is more concerning is the persistent abdominal pain. Will investigate for colitis, bowel obstruction, other acute abdominal pathology. Labs, UA/UC, CT abdomen and pelvis and reassess. 09/16/18 11:44 CBC, BMP 09/16/18 09:50 09/16/18 09:50 CMP Sodium 136 mmol/L (136-145) 09/16/18 09:50 Potassium 3.9 mmol/L (3.5-5.1) 09/16/18 09:50 Chloride 102 mmol/L (98-107) 09/16/18 09:50 Carbon Dioxide 26 mmol/L (22-28) 09/16/18 09:50 Anion Gap 8 MMOL/L (8-16) 09/16/18 09:50 BUN 14 mg/dl (7-18) 09/16/18 09:50 Creatinine 0.8 mg/dl (0.6-1.3) 09/16/18 09:50 Creat Clearance w eGFR > 60 (>60) 09/16/18 09:50 Random Glucose 122 mg/dl (74-106) H 09/16/18 09:50 Calcium 9.1 mg/dl (8.4-10.2) 09/16/18 09:50 Ferritin 124.8 ng/ml (8-388) 09/16/18 09:50 Total Bilirubin 0.5 mg/dl (0.2-1.0) 09/16/18 09:50 AST 22 U/L (10-42) 09/16/18 09:50 ALT 13 U/L (10-40) 09/16/18 09:50 Alkaline Phosphatase 47 U/L (32-92) 09/16/18 09:50 Troponin I < 0.03 ng/ml (0.00-0.06) 09/16/18 09:50 C-Reactive Protein < 0.3 MG/DL (0.00-0.3) 09/16/18 09:50 Total Protein 6.5 g/dl (6.4-8.3) 09/16/18 09:50 Albumin 4.0 g/dl (3.5-5.0) 09/16/18 09:50 Total Amylase 96 U/L (25-125) 09/16/18 09:50 Lipase 312 U/L (73-393) 09/16/18 09:50 Urine Test Results Urine Color Nancy 09/16/18 10:30 Urine Appearance Clear 09/16/18 10:30 Urine pH 7.0 (4.5-8) 09/16/18 10:30 Ur Specific [place] 1.010 (1.010-1.035) 09/16/18 10:30 Urine Protein 1+ (NEGATIVE) H 09/16/18 10:30 Urine Glucose (UA) Negative (NEGATIVE) 09/16/18 10:30 Urine Ketones Negative (NEGATIVE) 09/16/18 10:30 Urine Blood Trace-intact (NEGATIVE) H 09/16/18 10:30 Urine Nitrite Negative (NEGATIVE) 09/16/18 10:30 Urine Bilirubin Negative (NEGATIVE) 09/16/18 10:30 Ur Leukocyte Esterase Negative (NEGATIVE) 09/16/18 10:30 Urine RBC 0-2 /hpf (0-3) 09/16/18 10:30 Urine WBC 0-2 (0-5) 09/16/18 10:30 CT abdomen and pelvis negative. Given nearly daily near syncope and syncope episodes after pain, will admit for further workup. Dr. Kimani boogie for consultation. 09/16/18 11:[address] Harman. He is aware. Heart Score/ECG Review #1 ECG reviewed & interpreted by me at: 09:30 09/16/18 10:31 NSR 59, nonspecific T wave abnormality, no EMMANUELLE/STD, QTC 401 msec, no brugada, no HOCM, no WPW
[2018-09-16 10:24] LABS: ALK PHOS 47 U/L (32-92); AMYLASE 96 U/L (25-125); ANION GAP 8 MMOL/L (8-16); BILIRUBIN,TOTAL 0.5 mg/dl (0.2-1.0); BLOOD UREA NITROGEN 14 mg/dl (7-18); CALCIUM 9.1 mg/dl (8.4-10.2); CHLORIDE 102 mmol/L (98-107); CO2 26 mmol/L (22-28); CREATININE 0.8 mg/dl (0.6-1.3); GLUCOSE,RANDOM 122 mg/dl (74-106); POTASSIUM 3.9 mmol/L (3.5-5.1); SGOT/AST 22 U/L (10-42); SGPT/ALT 13 U/L (10-40); SODIUM 136 mmol/L (136-145); TOT PROT 6.5 g/dl (6.4-8.3)
[2018-09-16 10:25] LABS: INR 1.13 (0.82-1.09); PROTHROMBIN TIME (PATIENT) 12.6 SEC (10.2-13.0)
[2018-09-16 10:40] LABS: URINE APPEARANCE Clear; URINE BILIRUBIN Negative (NEGATIVE); URINE COLOR Amber; URINE GLUCOSE (UA) Negative (NEGATIVE); URINE KETONE Negative (NEGATIVE); URINE LEUK ESTERASE Negative (NEGATIVE); URINE NITRITE Negative (NEGATIVE); URINE PROTEIN 1+ (NEGATIVE); URINE UROBILINOGEN 0.2 (0.2-1.0)
[2018-09-16 10:53] LABS: URINE RBC 0-2 /hpf (0-3); URINE WBC 0-2 (0-5)
[2018-09-16 11:04] LABS: LIPASE 312 U/L (73-393)
--- NOTE | 2018-09-16 12:59 | HP ---
CHIEF COMPLAINT: Syncope PCP: Dr. Samano HISTORY OF PRESENT ILLNESS: 73 year-old female with a PMH significant for diverticultis s/p partial colon resection and reversal (2011), and recurrent episodes of syncope and abdominal pain for which she has had GI workups, most recent EGD 07/2018 diagnostic of mild gastritis. Patient developed abdominal pain and nausea after dinner last night. This morning, about 30 minutes after eating breakfast, she had abdominal pain and then two diarrheal movements in quick succession. She got dizzy and sat at the kitchen table and put her head down. She does not think she lost consciousness. When her came home from work he brought her to the ED. While in the ED, patient experienced abdominal pain and nausea after a lunch of clear liquids. Patient has had multiple visits to the ED for similar complaints , most recently 09/07/18. Patient denies fever, sweats, chills. ER course was notable for: (1) Afebrile, no leukocytosis (2) CTAP: no acute pathology Recent Travel: No PAST MEDICAL HISTORY: Diverticulitis Recurrent syncope PAST SURGICAL HISTORY: Hysterectomy Colostomy due to abscess (2011), reversed Social History: Smoking: quit 40 years ago, smoked for 15 years Alcohol: "I'm allergic" Drugs: no Family History: Allergies brimonidine tartrate [From Alphagan P] Allergy (Severe, Verified 09/07/18 14:28) heart palpitations doxycycline Allergy (Severe, Verified 09/07/18 14:28) Rash metronidazole [From Flagyl] Allergy (Intermediate, Verified 09/07/18 14:28) Low Blood Pressure headache,JITTERY,ANXIOUS Metronidazole HCl [From Flagyl] Allergy (Intermediate, Verified 09/07/18 14:28) hydromorphone HCl [From Dilaudid] Adverse Reaction (Severe, Verified 09/07/18 14 :28) Low Blood Pressure AGITATION,ANXIOUS HOME MEDICATIONS: Home Medications Medication Instructions Recorded Alprazolam [Xanax] 0.25 mg PO TID 07/23/18 Pantoprazole Sodium 40 mg PO DAILY 07/23/18 Docusate Sodium [Colace] 100 mg PO BID 07/26/18 Calcium Carbonate - 650 mg PO BID #60 tablet 09/07/18 REVIEW OF SYSTEMS CONSTITUTIONAL: Absent: fever, chills, diaphoresis, generalized weakness, malaise, loss of appetite, weight change HEENT: Absent: rhinorrhea, nasal congestion, throat pain, throat swelling, difficulty swallowing, mouth swelling, ear pain, eye pain, visual changes CARDIOVASCULAR: Absent: chest pain, syncope, palpitations, irregular heart rate, lightheadedness , peripheral edema RESPIRATORY: Absent: cough, shortness of breath, dyspnea with exertion, orthopnea, wheezing, stridor, hemoptysis GASTROINTESTINAL: +abdominal pain, nausea, diarrhea Absent: abdominal distension, vomiting, constipation, melena, hematochezia GENITOURINARY: Absent: dysuria, frequency, urgency, hesitancy, hematuria, flank pain, genital pain MUSCULOSKELETAL: Absent: myalgia, arthralgia, joint swelling, back pain, neck pain SKIN: Absent: rash, itching, pallor HEMATOLOGIC/IMMUNOLOGIC: Absent: easy bleeding, easy bruising, lymphadenopathy, frequent infections ENDOCRINE: Absent: unexplained weight gain, unexplained weight loss, heat intolerance, cold intolerance NEUROLOGIC: +syncope/near syncope Absent: headache, focal weakness or paresthesias, dizziness, unsteady gait, seizure, mental status changes, bladder or bowel incontinence PSYCHIATRIC: Absent: anxiety, depression, suicidal or homicidal ideation, hallucinations. PHYSICAL EXAMINATION Vital Signs - 24 hr 09/16/18 09:06 Temperature 97.9 F Pulse Rate 52 L Respiratory 16 Rate Blood Pressure 118/48 L O2 Sat by Pulse 99 Oximetry (%) GENERAL: Awake, alert, and fully oriented, in no acute distress. HEAD: Normal with no signs of trauma. EYES: Pupils equal, round and reactive to light, extraocular movements intact, sclera anicteric, conjunctiva clear. No lid lag. EARS, NOSE, THROAT: Ears normal, nares patent, oropharynx clear without exudates. Moist mucous membranes. NECK: Normal range of motion, supple without lymphadenopathy, JVD, or masses. LUNGS: Breath sounds equal, clear to auscultation bilaterally. No wheezes, and no crackles. No accessory muscle use. HEART: Regular rate and rhythm, normal S1 and S2 without murmur, rub or gallop. ABDOMEN: Soft, nontender, not distended, normoactive bowel sounds, no guarding, no rebound tenderness MUSCULOSKELETAL: Normal range of motion at all joints. No bony deformities or tenderness. No CVA tenderness. UPPER EXTREMITIES: 2+ pulses, warm, well-perfused. No cyanosis. No clubbing. No peripheral edema. LOWER EXTREMITIES: 2+ pulses, warm, well-perfused. No calf tenderness. No peripheral edema. NEUROLOGICAL: Cranial nerves II-XII intact. Normal speech. Laboratory Results - last 24 hr 09/16/18 09/16/18 09/16/18 09:50 09:50 09:50 WBC 4.9 RBC 4.33 Hgb 13.5 Hct 41.4 D MCV 95.7 MCH 31.2 MCHC 32.6 RDW 12.3 Plt Count 239 MPV 8.2 Absolute Neuts (auto) 3.5 Neutrophils % 69.6 Lymphocytes % 19.1 Monocytes % 9.8 Eosinophils % 0.5 Basophils % 1.0 PT with INR 12.6 INR 1.13 PTT (Actin FS) 23.7 L Sodium 136 Potassium 3.9 Chloride 102 Carbon Dioxide 26 Anion Gap 8 BUN 14 Creatinine 0.8 Creat Clearance w eGFR > 60 Random Glucose 122 H Calcium 9.1 Ferritin 124.8 Total Bilirubin 0.5 AST 22 ALT 13 Alkaline Phosphatase 47 Troponin I C-Reactive Protein < 0.3 Total Protein 6.5 Albumin 4.0 Total Amylase 96 Lipase 312 Urine Color Urine Appearance Urine pH Ur Specific [place] Urine Protein Urine Glucose (UA) Urine Ketones Urine Blood Urine Nitrite Urine Bilirubin Urine Urobilinogen Ur Leukocyte Esterase Urine RBC Urine WBC 09/16/18 09/16/18 09:50 10:30 WBC RBC Hgb Hct MCV MCH MCHC RDW Plt Count MPV Absolute Neuts (auto) Neutrophils % Lymphocytes % Monocytes % Eosinophils % Basophils % PT with INR INR PTT (Actin FS) Sodium Potassium Chloride Carbon Dioxide Anion Gap BUN Creatinine Creat Clearance w eGFR Random Glucose Calcium Ferritin Total Bilirubin AST ALT Alkaline Phosphatase Troponin I < 0.03 C-Reactive Protein Total Protein Albumin Total Amylase Lipase Urine Color Nancy Urine Appearance Clear Urine pH 7.0 Ur Specific [place] 1.010 Urine Protein 1+ H Urine Glucose (UA) Negative Urine Ketones Negative Urine Blood Trace-intact H Urine Nitrite Negative Urine Bilirubin Negative Urine Urobilinogen 0.2 Ur Leukocyte Esterase Negative Urine RBC 0-2 Urine WBC 0-2 ASSESSMENT/PLAN: 73 year-old female with a PMH significant for diverticulitis s/p partial colon resection s/p reversal, and recurrent syncope. Placed on observation for abdominal pain and syncopal/near syncopal episode. Abdominal pain and nausea --nausea and abdominal pain after dinner last night, after breakfast this morning, and after clear fluid lunch in ED this afternoon --LFTs wnl --CTAP w/ contrast: no acute pathology --US abdomen ordered --GI consult Diarrhea --two diarrheal movements prior to syncopal episode this morning, none since --stool studies r/o ACS --troponins neg x 2; third pending FEN Fluids: PO intake adequate Electrolytes: replete as indicated Nutrition: NPO except for meds DVT prophylaxis: subq heparin Dispo: continues to require observation. Full code. -- Visit type - Emergency Visit Emergency Visit: Yes ED Registration Date: 09/16/18 Care time: The patient presented to the Emergency Department on the above date and was hospitalized for further evaluation of their emergent condition. - New Patient This patient is new to me today: Yes Date on this admission: 09/17/18 - Critical Care Critical Care patient: No
[2018-09-16] MEDS ORDERED: FAMOTIDINE 20 MG/50 ML IVPB 20 MG/50 ML MG IVPB ONE ×2 (14:07→14:20)
[2018-09-16] MEDS ORDERED: PANTOPRAZOLE SODIUM 40 MG VIAL IVPUSH ONE (14:07)
[2018-09-16] MEDS ORDERED: PANTOPRAZOLE SODIUM 40 MG VIAL ONE (14:20)
[2018-09-16 18:19] VITALS: BMI 19.0
[2018-09-16 19:08] LABS: COCAINE, UR NEGATIVE ng/ml (CUTOFF=300); METHADONE, UR NEGATIVE ng/ml (CUTOFF=300); OPIATES, URI NEGATIVE ng/ml (CUTOFF=300); PHENCYCLIDINE,URINE NEGATIVE ng/ml (CUTOFF=25); URINE AMPHETAMINES NEGATIVE ng/ml (CUTOFF=500); URINE BARBITURATES NEGATIVE ng/ml (CUTOFF=200); URINE BENZODIAZEPINES NEGATIVE ng/ml (CUTOFF=200)
[2018-09-16] MEDS ORDERED: ALPRAZolam 0.25 MG TABLET PO PRN (19:16)
[2018-09-16] MEDS ORDERED: ALPRAZolam 0.25 MG TABLET PO SCH (22:00)
[2018-09-16] MEDS ORDERED: DEXTROSE 5%-0.45% SALINE 1,000 ML IV SCH (22:30)
[2018-09-17] MEDS: HEPARIN NA (PORCINE) 5,000 UNITS/ML 1ML VIAL SQ SCH ×2 (00:44→10:32)
[2018-09-17] MEDS: DOCUSATE SODIUM 100 MG CAPSULE (FP) PO SCH ×2 (00:45→10:31)
[2018-09-17 08:15] LABS: BASO % 0.9 % (0-2.0); EOS % 1.3 % (0-4.5); HEMATOCRIT 39.1 % (32.4-45.2); HEMOGLOBIN 12.9 GM/dl (10.7-15.3); MCH 31.9 pg (25.7-33.7); MCHC 33.1 g/dl (32.0-36.0); MEAN CELL VOLUME 96.4 fl (80-96); MEAN PLT VOLUME 8.4 fl (7.5-11.1); MONO % 8.4 % (3.8-10.2); NEUT % 55.4 % (42.8-82.8); PLATELET COUNT 228 K/MM3 (134-434); RBC 4.06 M/mm3 (3.60-5.2); RDW 12.9 % (11.6-15.6); WHITE BLOOD COUNT 3.9 K/mm3 (4.0-10.8)
[2018-09-17 08:35] LABS: ALBUMIN 3.8 g/dl (3.5-5.0); ALK PHOS 43 U/L (32-92); ANION GAP 6 MMOL/L (8-16); BILIRUBIN,TOTAL 0.6 mg/dl (0.2-1.0); BLOOD UREA NITROGEN 8 mg/dl (7-18); CALCIUM 8.9 mg/dl (8.4-10.2); CHLORIDE 107 mmol/L (98-107); CO2 27 mmol/L (22-28); CREATININE 0.6 mg/dl (0.6-1.3); GLUCOSE,RANDOM 114 mg/dl (74-106); MAGNESIUM 1.7 mg/dL (1.8-2.4); POTASSIUM 3.6 mmol/L (3.5-5.1); SGOT/AST 19 U/L (10-42); SGPT/ALT 12 U/L (10-40); SODIUM 140 mmol/L (136-145); TOT PROT 6.2 g/dl (6.4-8.3)
--- NOTE | 2018-09-17 09:32 | PN ---
Physical Exam: SUBJECTIVE: Patient seen and examined at bedside. Depressed. Vague complaints of pain. Frustrated at repeated trips to hospital. OBJECTIVE: Vital Signs Period Temp Pulse Resp BP Sys/Brown Pulse Ox Last 24 Hr 98.2 F-98.6 F 58-76 16-18 124-159/57-72 97-100 GENERAL: Awake, alert, and fully oriented, in no acute distress. HEAD: Normal with no signs of trauma. EYES: Pupils equal, round and reactive to light, extraocular movements intact, sclera anicteric, conjunctiva clear. No lid lag. EARS, NOSE, THROAT: Ears normal, nares patent, oropharynx clear without exudates. Moist mucous membranes. NECK: Normal range of motion, supple without lymphadenopathy, JVD, or masses. LUNGS: Breath sounds equal, clear to auscultation bilaterally. No wheezes, and no crackles. No accessory muscle use. HEART: Regular rate and rhythm, normal S1 and S2 without murmur, rub or gallop. ABDOMEN: Soft, nontender, not distended, normoactive bowel sounds, no guarding, no rebound tenderness MUSCULOSKELETAL: Normal range of motion at all joints. No bony deformities or tenderness. No CVA tenderness. UPPER EXTREMITIES: 2+ pulses, warm, well-perfused. No cyanosis. No clubbing. No peripheral edema. LOWER EXTREMITIES: 2+ pulses, warm, well-perfused. No calf tenderness. No peripheral edema. NEUROLOGICAL: Cranial nerves II-XII intact. Normal speech. Laboratory Results - last 24 hr 09/16/18 09/16/18 09/16/18 09:50 09:50 09:50 WBC 4.9 RBC 4.33 Hgb 13.5 Hct 41.4 D MCV 95.7 MCH 31.2 MCHC 32.6 RDW 12.3 Plt Count 239 MPV 8.2 Absolute Neuts (auto) 3.5 Neutrophils % 69.6 Lymphocytes % 19.1 Monocytes % 9.8 Eosinophils % 0.5 Basophils % 1.0 PT with INR 12.6 INR 1.13 PTT (Actin FS) 23.7 L Sodium 136 Potassium 3.9 Chloride 102 Carbon Dioxide 26 Anion Gap 8 BUN 14 Creatinine 0.8 Creat Clearance w eGFR > 60 Random Glucose 122 H Calcium 9.1 Magnesium Ferritin 124.8 Total Bilirubin 0.5 AST 22 ALT 13 Alkaline Phosphatase 47 Troponin I C-Reactive Protein < 0.3 B-Natriuretic Peptide Total Protein 6.5 Albumin 4.0 Total Amylase 96 Lipase 312 Vitamin D 25-Hydroxy Urine Color Urine Appearance Urine pH Ur Specific [place] Urine Protein Urine Glucose (UA) Urine Ketones Urine Blood Urine Nitrite Urine Bilirubin Urine Urobilinogen Ur Leukocyte Esterase Urine RBC Urine WBC Opiates Screen Methadone Screen Barbiturate Screen Phencyclidine Screen Ur Amphetamines Screen MDMA (Ecstasy) Screen Benzodiazepines Screen Cocaine Screen U Marijuana (THC) Screen 09/16/18 09/16/18 09/16/18 09:50 09:50 10:30 WBC RBC Hgb Hct MCV MCH MCHC RDW Plt Count MPV Absolute Neuts (auto) Neutrophils % Lymphocytes % Monocytes % Eosinophils % Basophils % PT with INR INR PTT (Actin FS) Sodium Potassium Chloride Carbon Dioxide Anion Gap BUN Creatinine Creat Clearance w eGFR Random Glucose Calcium Magnesium Ferritin Total Bilirubin AST ALT Alkaline Phosphatase Troponin I < 0.03 C-Reactive Protein B-Natriuretic Peptide Total Protein Albumin Total Amylase Lipase Vitamin D 25-Hydroxy 29.2 L Urine Color Nancy Urine Appearance Clear Urine pH 7.0 Ur Specific [place] 1.010 Urine Protein 1+ H Urine Glucose (UA) Negative Urine Ketones Negative Urine Blood Trace-intact H Urine Nitrite Negative Urine Bilirubin Negative Urine Urobilinogen 0.2 Ur Leukocyte Esterase Negative Urine RBC 0-2 Urine WBC 0-2 Opiates Screen Methadone Screen Barbiturate Screen Phencyclidine Screen Ur Amphetamines Screen MDMA (Ecstasy) Screen Benzodiazepines Screen Cocaine Screen U Marijuana (THC) Screen 09/16/18 09/16/18 09/16/18 16:58 17:30 17:40 WBC RBC Hgb Hct MCV MCH MCHC RDW Plt Count MPV Absolute Neuts (auto) Neutrophils % Lymphocytes % Monocytes % Eosinophils % Basophils % PT with INR INR PTT (Actin FS) Sodium Potassium Chloride Carbon Dioxide Anion Gap BUN Creatinine Creat Clearance w eGFR Random Glucose Calcium Magnesium 2.0 Ferritin Total Bilirubin AST ALT Alkaline Phosphatase Troponin I < 0.03 C-Reactive Protein B-Natriuretic Peptide Total Protein Albumin Total Amylase Lipase Vitamin D 25-Hydroxy Urine Color Urine Appearance Urine pH Ur Specific [place] Urine Protein Urine Glucose (UA) Urine Ketones Urine Blood Urine Nitrite Urine Bilirubin Urine Urobilinogen Ur Leukocyte Esterase Urine RBC Urine WBC Opiates Screen Negative Methadone Screen Negative Barbiturate Screen Negative Phencyclidine Screen Negative Ur Amphetamines Screen Negative MDMA (Ecstasy) Screen Negative Benzodiazepines Screen Negative Cocaine Screen Negative U Marijuana (THC) Screen Negative 09/16/18 09/16/18 09/17/18 17:40 22:20 07:45 WBC 3.9 L RBC 4.06 Hgb 12.9 Hct 39.1 MCV 96.4 H MCH 31.9 MCHC 33.1 RDW 12.9 Plt Count 228 MPV 8.4 Absolute Neuts (auto) 2.2 Neutrophils % 55.4 Lymphocytes % 34.0 Monocytes % 8.4 Eosinophils % 1.3 Basophils % 0.9 PT with INR INR PTT (Actin FS) Sodium Potassium Chloride Carbon Dioxide Anion Gap BUN Creatinine Creat Clearance w eGFR Random Glucose Calcium Magnesium Ferritin Total Bilirubin AST ALT Alkaline Phosphatase Troponin I < 0.03 C-Reactive Protein B-Natriuretic Peptide 127.6 H Total Protein Albumin Total Amylase Lipase Vitamin D 25-Hydroxy Urine Color Urine Appearance Urine pH Ur Specific [place] Urine Protein Urine Glucose (UA) Urine Ketones Urine Blood Urine Nitrite Urine Bilirubin Urine Urobilinogen Ur Leukocyte Esterase Urine RBC Urine WBC Opiates Screen Methadone Screen Barbiturate Screen Phencyclidine Screen Ur Amphetamines Screen MDMA (Ecstasy) Screen Benzodiazepines Screen Cocaine Screen U Marijuana (THC) Screen 09/17/18 07:45 WBC RBC Hgb Hct MCV MCH MCHC RDW Plt Count MPV Absolute Neuts (auto) Neutrophils % Lymphocytes % Monocytes % Eosinophils % Basophils % PT with INR INR PTT (Actin FS) Sodium 140 Potassium 3.6 Chloride 107 Carbon Dioxide 27 Anion Gap 6 L BUN 8 Creatinine 0.6 Creat Clearance w eGFR > 60 Random Glucose 114 H Calcium 8.9 Magnesium 1.7 L Ferritin Total Bilirubin 0.6 AST 19 ALT 12 Alkaline Phosphatase 43 Troponin I C-Reactive Protein B-Natriuretic Peptide Total Protein 6.2 L Albumin 3.8 Total Amylase Lipase Vitamin D 25-Hydroxy Urine Color Urine Appearance Urine pH Ur Specific [place] Urine Protein Urine Glucose (UA) Urine Ketones Urine Blood Urine Nitrite Urine Bilirubin Urine Urobilinogen Ur Leukocyte Esterase Urine RBC Urine WBC Opiates Screen Methadone Screen Barbiturate Screen Phencyclidine Screen Ur Amphetamines Screen MDMA (Ecstasy) Screen Benzodiazepines Screen Cocaine Screen U Marijuana (THC) Screen Active Medications Generic Name Dose Route Start Last Admin Trade Name Freq PRN Reason Stop Dose Admin Alprazolam 0.25 mg 09/16/18 19:16 09/16/18 20:56 Xanax - PO 0.25 mg BID PRN Administration ANXIETY Docusate Sodium 100 mg 09/16/18 22:00 09/17/18 00:45 Colace - PO 100 mg BID MARTIN Administration Heparin Sodium (Porcine) 5,000 unit 09/16/18 22:00 09/17/18 00:44 Heparin - SQ 5,000 unit BID MARTIN Administration Dextrose/Sodium Chloride 1,000 mls @ 42 mls/hr 09/16/18 22:30 09/16/18 22:30 D5-1/2ns - IV 42 mls/hr ASDIR MARTIN Administration Pantoprazole Sodium 40 mg 09/17/18 10:00 Protonix - PO DAILY MARTIN ASSESSMENT/PLAN 73 year-old female with a PMH significant for diverticulitis s/p partial colon resection s/p reversal, and recurrent syncope. Placed on observation for abdominal pain and syncopal/near syncopal episode. Abdominal pain and nausea --kept NPO overnight and no further episodes of abdominal pain, diarrhea, or dizziness/lightheadedness --LFTs wnl --US abdomen and CTAP w/ contrast: no acute pathology --discussed by telephone with Dr. Harman who is familiar with the patient; he is happy to see patient in his office on Thursday; no recommendations at this time --will start clears Diarrhea, resolved r/o ACS --troponins neg x3 --EKG: sinus bradycardia, no ischemic changes --Echo 04/2018 nl LV/RV function, mild MR, mild prolapse of post leaflet of MV , trace TR Recurrent syncope --seen and evaluated by cardiology: --likely vasovagal vs related to dehydration as syncope is generally associated with severe abd discomfort or frequent diarrheal episodes with poor PO intake --would consider 30-day event monitor as outpatient to rule out arrhythmia as etiology for syncope given frequent episode and one episode not associated with abdominal complaints FEN Fluids: PO intake adequate Electrolytes: replete as indicated Nutrition: clears, advance as tolerated DVT prophylaxis: subq heparin Dispo: continues to require observation. Full code. Visit type - Emergency Visit Emergency Visit: Yes ED Registration Date: 09/16/18 Care time: The patient presented to the Emergency Department on the above date and was hospitalized for further evaluation of their emergent condition. - New Patient This patient is new to me today: No - Critical Care Critical Care patient: No
[2018-09-17] MEDS ORDERED: MAGNESIUM SULF 50% (8.12 MEQ/2 ML-1 GM VIAL) IVPB ONE (09:51)
[2018-09-17] MEDS ORDERED: MAGNESIUM SULFATE IN WATER 2 GM/50 ML IVPB IVPB ONE (10:30)
[2018-09-17] MEDS: PANTOPRAZOLE 40 MG TABLET (FP) PO SCH (10:32)
[2018-09-17] MEDS ORDERED: POTASSIUM CHLORIDE TABS 20 MEQ TABLET.ER (FP) PO ONE (11:30)
--- NOTE | 2018-09-17 11:39 | EKG ---
Test Reason : Blood Pressure : / mmHG Vent. Rate : 059 BPM Atrial Rate : 059 BPM P-R Int : 164 ms QRS Dur : 088 ms QT Int : 406 ms P-R-T Axes : 082 016 074 degrees QTc Int : 401 ms SINUS BRADYCARDIA NONSPECIFIC T WAVE ABNORMALITY ABNORMAL ECG WHEN COMPARED WITH ECG OF 07-SEP-2018 14:33, QT HAS SHORTENED Confirmed by RAPHAEL RICKS, AIDEE ([id number]) on 09/17/2018 11:39:04 AM Referred By: MAXIMILIANO GONZALEZ Confirmed By:AIDEE LIM MD
--- NOTE | 2018-09-17 13:39 | CON.CARD ---
Consult Consult Specialty:: Cardiology Referred by:: Chas Reason for Consultation:: dizziness, syncope - History of Present Illness Chief Complaint: abd pain, dizziness History of Present Illness: 73F h/o diverticulosis s/p colon resection ahnd reversal with recurrent episodes of syncope and abd pain for which she had recent EGD 07/2018 p/w abd pain and nausea, diarrhea with dizziness after two episodes of diarrhea as well. Lost consciousness for a few seconds. In the ER had abd pain and nausea. Trop neg x 3, no events on tele, no acute pathology on CT A/P, ultrasound. Notes she had prior episodes and prior ED visits for same. Prior episodes of loss of consciousness have been associated with severe abdominal pain or diarrheal episodes. she had one episode that happened as she was walking down the stairs, felt dizzy, lightheaded and then blacked out. she doesn't remember when this was. - History Source History Provided By: Patient - Alcohol/Substance Use Hx Alcohol Use: No - Smoking History Smoking history: Former smoker Have you smoked in the past 12 months: No Aproximately how many cigarettes per day: 0 If you are a former smoker, when did you quit?: 1973 Home Medications - Allergies Allergies/Adverse Reactions: Allergies Allergy/AdvReac Type Severity Reaction Status Date / Time brimonidine tartrate Allergy Severe heart Verified 09/07/18 14:28 [From Alphagan P] palpitations doxycycline Allergy Severe Rash Verified 09/07/18 14:28 metronidazole [From Flagyl] Allergy Intermediate Low Blood Verified 09/07/18 14: 28 Pressure Metronidazole HCl Allergy Intermediate Verified 09/07/18 14:28 [From Flagyl] hydromorphone HCl AdvReac Severe Low Blood Verified 09/07/18 14:28 [From Dilaudid] Pressure - Home Medications Home Medications: Ambulatory Orders Alprazolam [Xanax] 0.25 mg PO TID 07/23/18 Pantoprazole Sodium 40 mg PO DAILY 07/23/18 Docusate Sodium [Colace] 100 mg PO BID 07/26/18 Calcium Carbonate - 650 mg PO BID #60 tablet 09/07/18 Family Disease History - Family Disease History Family History: Unremarkable Review of Systems - Review of Systems Constitutional: reports: No Symptoms Eyes: reports: No Symptoms HENT: reports: No Symptoms Neck: reports: No Symptoms Cardiovascular: reports: No Symptoms Respiratory: reports: No Symptoms Gastrointestinal: reports: No Symptoms Genitourinary: reports: No Symptoms Musculoskeletal: reports: No Symptoms Integumentary: reports: No Symptoms Neurological: reports: No Symptoms Endocrine: reports: No Symptoms Hematology/Lymphatic: reports: No Symptoms Psychiatric: reports: No Symptoms Vital Signs: Vital Signs Temperature 98.6 F 09/17/18 06:20 Pulse Rate 58 L 09/17/18 06:20 Respiratory Rate 18 09/17/18 09:19 Blood Pressure 147/57 L 09/17/18 06:20 O2 Sat by Pulse Oximetry (%) 99 09/17/18 09:19 Constitutional: Yes: Well Nourished, No Distress, Calm Eyes: Yes: Conjunctiva Clear, EOM Intact HENT: Yes: Atraumatic, Normocephalic Neck: Yes: Supple, Trachea Midline Respiratory: Yes: Regular, CTA Bilaterally Gastrointestinal: Yes: Normal Bowel Sounds, Soft Cardiovascular: Yes: Regular Rate and Rhythm JVD: No Carotid Bruit: No PMI: Non-Displaced Heart Sounds: Yes: S1, S2 Musculoskeletal: No: Back Pain Extremities: No: Cold Edema: No Peripheral Pulses WNL: Yes Peripheral Pulses: 2+ Left Doralis Pedis, 2+ Right Dorsalis Pedis Neurological: Yes: Alert, Oriented Psychiatric: No: Agitated - Other Data Labs, Other Data: CBC, BMP 09/17/18 07:45 09/17/18 07:45 INR, PTT INR 1.13 (0.82-1.09) 09/16/18 09:50 Troponin, BNP 09/16/18 09/16/18 09/16/18 17:30 17:40 22:20 Troponin I < 0.03 < 0.03 B-Natriuretic Peptide 127.6 H Troponin, BNP 09/16/18 09/16/18 09/16/18 17:30 17:40 22:20 Troponin I < 0.03 < 0.03 B-Natriuretic Peptide 127.6 H Assessment/Plan EKG: sinus bradycardia, no ischemic changes Echo 04/2018 nl LV/RV function, mild MR, mild prolapse of post leaflet of MV, trace TR tele: sinus, sinus bradycardia Syncope, dizziness - likely vasovagal vs related to dehydration as syncope is generally associated with severe abd discomfort or frequent diarrheal episodes with poor PO intake - echo unremarkable 04/2018 - no events on tele - would consider 30 day event monitor as outpatient to rule out arrhythmia as etiology for syncope given frequent episode and one episode not associated with abdominal complaints, discussed with patient Abd pain - trop neg x 3 - EKG no ischemic changes - unlikely ACS, more likely GI etiology
[2018-09-18 06:05] VITALS: BP 137/53; PULSE 61; TEMP 97.8
--- NOTE | 2018-09-18 09:55 | DS ---
Physical Exam: SUBJECTIVE: Patient seen and examined. Mood is brighter, seen walking in hallway earlier. No further episodes of abdominal pain, diarrhea, or near syncope. OBJECTIVE: Vital Signs Period Temp Pulse Resp BP Sys/Brown Pulse Ox Last 24 Hr 97.5 F-98.7 F 58-63 16-18 137-147/53-63 99-100 PHYSICAL EXAM GENERAL: The patient is awake, alert, and fully oriented, in no acute distress. LUNGS: Breath sounds equal, clear to auscultation bilaterally, no wheezes, no crackles, no accessory muscle use. HEART: Regular rate and rhythm, S1, S2 without murmur, rub or gallop. ABDOMEN: Soft, nontender, nondistended, normoactive bowel sounds, no guarding, no rebound EXTREMITIES: 2+ pulses, warm, well-perfused, no edema. NEUROLOGICAL: Cranial nerves II through XII grossly intact. Normal speech, steady gait LABS CBCD WBC 3.9 K/mm3 (4.0-10.8) L 09/17/18 07:45 RBC 4.06 M/mm3 (3.60-5.2) 09/17/18 07:45 Hgb 12.9 GM/dl (10.7-15.3) 09/17/18 07:45 Hct 39.1 % (32.4-45.2) 09/17/18 07:45 MCV 96.4 fl (80-96) H 09/17/18 07:45 MCHC 33.1 g/dl (32.0-36.0) 09/17/18 07:45 RDW 12.9 % (11.6-15.6) 09/17/18 07:45 Plt Count 228 K/MM3 (134-434) 09/17/18 07:45 MPV 8.4 fl (7.5-11.1) 09/17/18 07:45 CMP Sodium 140 mmol/L (136-145) 09/17/18 07:45 Potassium 3.6 mmol/L (3.5-5.1) 09/17/18 07:45 Chloride 107 mmol/L (98-107) 09/17/18 07:45 Carbon Dioxide 27 mmol/L (22-28) 09/17/18 07:45 Anion Gap 6 MMOL/L (8-16) L 09/17/18 07:45 BUN 8 mg/dl (7-18) 09/17/18 07:45 Creatinine 0.6 mg/dl (0.6-1.3) 09/17/18 07:45 Creat Clearance w eGFR > 60 (>60) 09/17/18 07:45 Calcium 8.9 mg/dl (8.4-10.2) 09/17/18 07:45 Total Bilirubin 0.6 mg/dl (0.2-1.0) 09/17/18 07:45 AST 19 U/L (10-42) 09/17/18 07:45 ALT 12 U/L (10-40) 09/17/18 07:45 Alkaline Phosphatase 43 U/L (32-92) 09/17/18 07:45 Total Protein 6.2 g/dl (6.4-8.3) L 09/17/18 07:45 Albumin 3.8 g/dl (3.5-5.0) 09/17/18 07:45 HOSPITAL COURSE: Date of Admission:09/16/18 Date of Discharge: 09/18/18 Pre hospital course 73 year-old female with a PMH significant for diverticultis s/p partial colon resection and reversal (2011), and recurrent episodes of syncope and abdominal pain for which she has had GI workups, most recent EGD 07/2018 diagnostic of mild gastritis. Patient developed abdominal pain and nausea after dinner last night. This morning, about 30 minutes after eating breakfast, she had abdominal pain and then two diarrheal movements in quick succession. She got dizzy and sat at the kitchen table and put her head down. She does not think she lost consciousness. When her came home from work he brought her to the ED. While in the ED, patient experienced abdominal pain and nausea after a lunch of clear liquids. Patient has had multiple visits to the ED for similar complaints , most recently 09/07/18. Patient denies fever, sweats, chills. ER course was notable for: (1) Afebrile, no leukocytosis (2) CTAP: no acute pathology Subsequent hospital course by problem list Abdominal pain and nausea --initially kept NPO and diet was slowly advanced to clears, full liquids, and soft; no episodes of abdominal pain, diarrhea, or dizziness/lightheadedness while in hospital --LFTs were wnl --US abdomen and CTAP w/ contrast: no acute pathology --discussed by telephone with Dr. Harman who is familiar with the patient; he is happy to see patient in his office on Thursday; no recommendations at this time Diarrhea, resolved r/o ACS --troponins neg x3 --EKG: sinus bradycardia, no ischemic changes --Echo 04/2018 nl LV/RV function, mild MR, mild prolapse of post leaflet of MV , trace TR Recurrent syncope --seen and evaluated by cardiology: --likely vasovagal vs related to dehydration as syncope is generally associated with severe abd discomfort or frequent diarrheal episodes with poor PO intake --would consider 30-day event monitor as outpatient to rule out arrhythmia as etiology for syncope given frequent episode and one episode not associated with abdominal complaints Minutes to complete discharge: 35 Discharge Summary Reason For Visit: SYNCOPE/ABDOMINAL PAIN Current Active Problems Abdominal pain (Acute) Syncope (Acute) Condition: Improved - Instructions Diet, Activity, Other Instructions: As we discussed, you may want to follow up with a clerical specialist at an [facility] for your chronic issues. You may wish to call the following physician: Dr. Bill Higgins [address], [address] [place], [place] [phone] You may also want to follow up with a security clerk for follow up event monitoring. You were seen in the hospital by Dr. Taisha Stevenson. Her contact information is enclosed in this discharge packet. Return to the emergency department for any new or worsening symptoms. Referrals: Som Samano MD [Primary Care Provider] - Tasiha Stevenson MD [Staff Physician] - Bill Higgins [Non Staff, Medical] - 1 Week Disposition: HOME - Home Medications Comprehensive Discharge Medication List: Ambulatory Orders Alprazolam [Xanax] 0.25 mg PO TID 07/23/18 Pantoprazole Sodium 40 mg PO DAILY 07/23/18 Calcium Carbonate - 650 mg PO BID #60 tablet 09/07/18 This patient is new to me today: No Emergency Visit: Yes ED Registration Date: 09/16/18 Care time: The patient presented to the Emergency Department on the above date and was hospitalized for further evaluation of their emergent condition. Critical Care patient: No - Discharge Referral [facility]erred to [facility] Ammon RutherfordC.: Yes Physician Referral: Som Samano MD (Int Med)
[2018-09-18] MEDS: PANTOPRAZOLE 40 MG TABLET (FP) PO SCH (10:00)
[2018-09-18] MEDS: HEPARIN NA (PORCINE) 5,000 UNITS/ML 1ML VIAL SQ SCH (11:09)
[2018-09-19 06:37] LABS: SERUM IRON SATURATION 40 % (15-55); TOTAL IRON BINDING CAPACITY 235 ug/dL (250-450); UIBC 140 ug/dL (118-369)
== END 2018-09-18 10:31 | disposition home or self-care (01) ==
LOC: SUATTDRO 09:00 → FER 09:00 → FM/S 17:02
PROVIDERS: ADMIT Internal Medicine; ATTEND Nurse Practitioner Acute Care
PROC: 3E033GC Introduction of Other Therapeutic Substance into Peripheral Vein, Percutaneous Approach (ICD-10-PCS; principal; 2018-09-16)
PROC: 3E0337Z Introduction of Electrolytic and Water Balance Substance into Peripheral Vein, Percutaneous Approach (ICD-10-PCS; 2018-09-16)
DX: R55 Syncope and collapse (principal); R00.1 Bradycardia, unspecified; R10.9 Unspecified abdominal pain; R11.0 Nausea; R19.7 Diarrhea, unspecified; R42 Dizziness and giddiness; I34.1 Nonrheumatic mitral (valve) prolapse; Z88.1 Allergy status to other antibiotic agents; Z88.8 Allergy status to other drugs, medicaments and biological substances; Z90.49 Acquired absence of other specified parts of digestive tract
CPT/HCPCS: 36415; 74177-TC; 76705-TC; 80053; 80307; 81003; 81015; 82150; 82306; 82330; 82728; 83540; 83550; 83690; 83735; 83880; 84484; 85025; 85610; 85730; 86140; 87086; 93005; 99285-25; G0378; J1644; J7030

== ENCOUNTER 2019-05-23 10:56 | Day surgery (SDC) | payer OTHER, MEDICARE | END 2019-05-23 12:52 | disposition home or self-care (01) | LOC: FASU-ENDO 10:56 ==

== ENCOUNTER → 2019-05-23 | Emergency (ER) | payer OTHER, MEDICARE | END | disposition home or self-care (01) | LOC: FER 06:11 ==

== ENCOUNTER 2020-06-18 17:26 | Observation (INO) | payer OTHER, MEDICARE ==
[2020-06-18 17:42] VITALS: BMI 17.4
--- NOTE | 2020-06-18 17:42 | PDOC ---
Rapid Medical Evaluation Time Seen by Provider: 06/18/20 17:38 Medical Evaluation: Allergies Allergy/AdvReac Type Severity Reaction Status Date / Time brimonidine tartrate Allergy Severe heart Verified 05/23/19 06:18 [From Alphagan P] palpitations doxycycline Allergy Severe Rash Verified 05/23/19 06:18 metronidazole [From Flagyl] Allergy Intermediate Low Blood Verified 05/23/19 06:18 Pressure Metronidazole HCl Allergy Intermediate Verified 05/23/19 06:18 [From Flagyl] hydromorphone HCl AdvReac Severe Low Blood Verified 05/23/19 06:18 [From Dilaudid] Pressure 06/18/20 17:39 74 year old female pmhx MVP colonectomy HTN complaining of chest pain and palpitations. Also complaining of weakness nausea and sweats PE: CTA RRR EKG at triage NSR Plan: Labs Chest XR Pt to precede to ED for further eval
--- OUTSIDE RECORDS SUMMARY | 2020-06-18 17:54 | XMS ---
:1945 Author Organization [facility] Care Team Providers Name Role Phone Som Samano Unavailable Fader, M Unavailable Fader, M Unavailable Fader, M Unavailable Fader, M Unavailable Fader, M Unavailable Fader, M Unavailable Fader, M Unavailable Fader, M Unavailable Fader, M Unavailable Fader, M Unavailable Fader, M Unavailable Fader, M Unavailable Fader, M Unavailable Re-disclosure Warning The records that you are about to access may contain information from federally- assisted alcohol or drug abuse programs. If such information is present, then the following federally mandated warning applies: This information has been disclosed to you from records protected by federal confidentiality rules (42 CFR part 2). The federal rules prohibit you from making any further disclosure of this information unless further disclosure is expressly permitted by the written consent of the person to whom it pertains or as otherwise permitted by 42 CFR part 2. A general authorization for the release of medical or other information is NOT sufficient for this purpose. The Federal rules restrict any use of the information to criminally investigate or prosecute any alcohol or drug abuse patient.The records that you are about to access may contain highly sensitive health information, the redisclosure of which is protected by Article 27-F of the [facility] Public Health law. If you continue you may haveaccess to information: Regarding HIV / AIDS; Provided by facilities licensed or operated by the [facility] Office of Mental Health; or Provided by the [facility] Office for People With Developmental Disabilities. If such information is present, then the following [facility] mandated warning applies: This information has been disclosed to you from confidential records which are protected by state law. State law prohibits you from making any further disclosure of this information without the specific written consent of the person to whom it pertains, or as otherwise permitted by law. Any unauthorized further disclosure in violation of state law may result in a fine or long term sentence or both. A general authorization for the release of medical or other information is NOT sufficient authorization for further disclosure. Family History Family Member Family Member Family Member Date of Description Data Source(s) Name Gender Status Status Unknown Male Problem MEDENT ([facility] ) Encounters Encounter Providers Location Date Indications Data Source(s ) Attender: Som 05/23/2020 [facility] ( [facility] Medical, ) Telehealth Attender: Som Samano 05/23/2020 12:00:00 AM E DT MEDGEN ([facility] [place], ) Telehealth Medications Medication Brand Start Product Dose Route Administrative Pharmacy [facility] Indications Reaction Description Data Name Date Form Instructions Instructions Source(s) Alprazolam ALPRAZ 05/11/ TABLET 60 complet ALPRA ZOLAM MEDGEN (St 0.25 MG OLAM:3 2019 ed [facility] Oral Tablet 28203 12:00: Medic al, ALPRAZOLAM: 00 AM PC) [id number] EDT Cholecalcif VITAMI 02/14/ CAPSULE 30 complet VIT LAZARO D3 MEDGEN (St reji 1000 N 2019 ed [facility] UNT Oral D3:245 12:00: Medical , Capsule 500 00 AM PC) VITAMIN EDT D3:[id number] CULTURELLE 02/14/ CAPSULE 30 complet CULTUR BERNY MED[facility] (St DIGESTIVE 2020 ed DIGESTIVE [facility] HEALTH:1000 12:00: HEALTH Medi sal, 750 00 AM PC) EDT Docusate COLACE 07/28/ CAPSULE 30 complet COLACE MED[facility] (St Sodium 50 :56394 2019 ed [facility] MG Oral 61 12:00: Medical, Capsule 00 AM PC) [Colace] EST COLACE:[id number] Insurance Providers Payer name Policy type Policy ID Covered Covered constitution party's Policy P enio / Coverage constitution party ID relationship to [place] [employer] ormation type [place] [employer] [id number] SP [id number] CARE OPTIONS MEDICARE [id number] SP [id number] [place] MEDICARE [id number] 1 [id number] PART B DOWNSTATE AAR MEDICARE [id number] 1 [id number] [place]PP[place] [id number] PART B [employer] AAR HEALTH [id number] SP [id number] CARE OPTIONS MEDICARE [id number] SP [id number] [facility] [id number] Self [id number] Healthcare Part B Medicare Medicare [id number] Self [id number] [id number] [place] Primary Aarp [facility] [id number] Self [id number] Healthcare Part B Medicare Medicare [id number] Self [id number] [id number] [place] Primary Aarp [facility] [id number] Self [id number] Healthcare Part B Medicare Medicare [id number] Self [id number] [id number] [place] Primary Aarp [facility] [id number] Self [id number] Healthcare Part B Medicare Medicare [id number] Self [id number] [id number] [place] Primary AAR HEALTH [id number] SP [id number] CARE OPTIONS Problems, Conditions, and Diagnoses Code Display Name Description Problem Type Effective Dates Data Source(s) R31.21 Asymptomatic ASYMPTOMATIC Problem 07/28/2019 MED[facility] (St microscopic MICROSCOPIC 12:00:00 AM EST Kristin hematuria [facility]) M54.5 Low back pain LOW BACK PAIN Problem 04/26/2019 MEDGEN ( St 12:00:00 AM EDT [facility]) Z13.89 Encounter for ENCOUNTER FOR Problem 04/26/2019 MEDGEN ( St screening for SCREENING FOR 12:00:00 AM EDT Amari n's other disorder OTHER DISORDER Medica , ) Surgeries/Procedures Procedure Description Date Indications Data Source(s) Documentation of current 05/23/2020 MED GEN ([facility] medications (procedure) 12:00:00 AM EDT CANDIE Alvarado) Documentation of current 05/23/2020 MED GEN ([facility] medications (procedure) 12:00:00 AM EDT CANDIE Alvarado) Documentation of current 05/23/2020 MED GEN ([facility] medications (procedure) 12:00:00 AM EDT CANDIE Alvarado) OFFICE OUTPATIENT VISIT 05/23/2020 MEDG EN ([facility] 15 MINUTES 12:00:00 AM EDT [facility]) Documentation of current 02/15/2020 MED GEN ([facility] medications (procedure) 12:00:00 AM EDT CANDIE Alvarado) OFFICE OUTPATIENT VISIT 02/15/2020 MEDG EN ([facility] 15 MINUTES 12:00:00 AM EDT [facility]) Documentation of current 02/15/2020 MED GEN ([facility] medications (procedure) 12:00:00 AM EDT CANDIE Alvarado) Documentation of current 02/15/2020 MED GEN ([facility] medications (procedure) 12:00:00 AM EDCANDIE Lopez) Documentation of current 07/28/2019 MED GEN ([facility] medications (procedure) 12:00:00 AM CANDIE Haley) Documentation of current 07/28/2019 MED GEN ([facility] medications (procedure) 12:00:00 AM CANDIE Haley) Documentation of current 07/28/2019 MED GEN ([facility] medications (procedure) 12:00:00 AM CANDIE Haley) Documentation of current 07/28/2019 MED GEN ([facility] medications (procedure) 12:00:00 AM CANDIE Haley) Documentation of current 07/28/2019 MED GEN ([facility] medications (procedure) 12:00:00 AM CANDIE Haley) Documentation of current 07/28/2019 MED GEN ([facility] medications (procedure) 12:00:00 AM CANDIE Haley) Documentation of current 07/28/2019 MED GEN ([facility] medications (procedure) 12:00:00 AM EST [facility], ) OFFICE OUTPATIENT VISIT 07/28/2019 MEDG EN ([facility] 15 MINUTES 12:00:00 AM [facility]) Documentation of current 04/26/2019 MED GEN ([facility] medications (procedure) 12:00:00 AM EDT edical, PC) Documentation of current 04/26/2019 MED GEN ([facility] medications (procedure) 12:00:00 AM EDT [facility], PC) Documentation of current 04/26/2019 MED GEN ([facility] medications (procedure) 12:00:00 AM EDT [facility], PC) Documentation of current 04/26/2019 MED GEN ([facility] medications (procedure) 12:00:00 AM EDT jasonical, ) OFFICE OUTPATIENT VISIT 04/26/2019 MEDG EN ([facility] 25 MINUTES 12:00:00 AM [facility], ) Social History Code Duration Value Status Description Data Source(s ) Smoking 05/23/2020 Marital Status completed Marital Status MEDGEN (St 12:00:00 AM Household Household [facility], EDT Members 2 Lives Members 2 Lives PC) Independently Yes Independently Yes Number of Children Number of Childre n 1 Tobacco Status: 1 Tobacco Stat us: Former smoker Former smoker Tobacco details: Tobacco details: Cigarettes Smoking Cigarettes Smokin g History: 10-15 History: 10-15 Years Daily Years Daily Smokin Pack Smokin Pack Smoking Stop Date: Smoking Stop Date : over 40 yrs ago over 40 yrs ago Well Balance... Well Balanced Diet Daily or Most days Exercise Frequency Daily (walks) Alcohol Use None Smoking 05/23/2020 Never smoked completed Never smoked MED[facility] (St 12:00:00 AM [facility], [facility]T PC) Vital Signs ID Date Data Source UNK Name Value Range Interpretation Code Description Data Source(s) Heart rate 63 /min 63 /min [facility] ([facility]) Body mass index 18.3 kg/m2 18.3 kg/m2 MED[facility] (S t (BMI) [Ratio] [facility], ) Diastolic blood 66 mm[Hg] 66 mm[Hg] MEDGEN (S t pressure [facility]) Systolic blood 136 mm[Hg] 136 mm[Hg] [facility] [place] [place] Body weight 110 lb 110 lb [facility] ([facility]) Body height 65 in 65 in MEDGEN ([facility]) Heart rate 71 /min 71 /min MED[facility] ([facility]) Diastolic blood 62 mm[Hg] 62 mm[Hg] MEDGEN (S t [facility]) Systolic blood 133 mm[Hg] 133 mm[Hg] [facility] [place] [place] Body weight 110 lb 110 lb [facility] ([facility]) Heart rate 78 /min 78 /min [facility] ([facility]) Respiratory rate 16 /min 16 /min MED[facility] ( [facility]) Body temperature 97.9 F 97.9 F MEDGEN ( [facility]) Inhaled oxygen 98 % 98 % MEDGEN ([facility]) Body mass index 17 kg/m2 17 kg/m2 MEDGEN (S t (BMI) [Ratio] [facility] [place] [place]) Diastolic blood 79 mm[Hg] 79 mm[Hg] MEDGEN (S t [facility]) Systolic blood 118 mm[Hg] 118 mm[Hg] [facility] [place] [place] Body weight 102 lb 102 lb [facility] ([facility]) Body height 65 in 65 in [facility] ([facility]) Heart rate 63 /min 63 /min [facility] ([facility]) Respiratory rate 15 /min 15 /min MEDGEN ( [facility]) Body temperature 98.3 F 98.3 F MEDGEN ( [facility]) Inhaled oxygen 96 % 96 % MEDGEN ([facility]) Body mass index 17.6 kg/m2 17.6 kg/m2 MEDGEN (S t (BMI) [Ratio] [facility] [place] [place]) Diastolic blood 72 mm[Hg] 72 mm[Hg] MEDGEN (S t [facility]) Systolic blood 156 mm[Hg] 156 mm[Hg] [facility] [place] [place] Body weight 106 lb 106 lb [facility] ([facility] , ) Body height 65 in 65 in [facility] ([facility] , )
[2020-06-18 19:04] LABS: BASO % 0.6 % (0-2.0); EOS % 0.7 % (0-4.5); HEMATOCRIT 38.9 % (32.4-45.2); HEMOGLOBIN 13.3 GM/dL (10.7-15.3); MCH 32.6 pg (25.7-33.7); MCHC 34.2 g/dl (32.0-36.0); MEAN CELL VOLUME 95.3 fl (80-96); MEAN PLT VOLUME 7.5 fl (7.5-11.1); MONO % 9.8 % (3.8-10.2); NEUT % 58.9 % (42.8-82.8); PLATELET COUNT 239 K/MM3 (134-434); RBC 4.09 M/mm3 (3.60-5.2); RDW 13.4 % (11.6-15.6); WHITE BLOOD COUNT 4.9 K/mm3 (4.0-10.0)
[2020-06-18 19:13] LABS: INR 1.1 (0.83-1.09)
[2020-06-18 19:48] LABS: ALBUMIN 3.8 g/dl (3.4-5.0); ALK PHOS 52 U/L (45-117); ANION GAP 5 MMOL/L (8-16); BILIRUBIN,TOTAL 0.3 mg/dL (0.2-1); BLOOD UREA NITROGEN 10.7 mg/dL (7-18); CALCIUM 8.5 mg/dL (8.5-10.1); CHLORIDE 107 mmol/L (98-107); CO2 28 mmol/L (21-32); CREATININE 0.6 mg/dL (0.55-1.3); GLUCOSE,RANDOM 102 mg/dL (74-106); N-TERMINAL BNP 100.1 pg/ml (5-125); POTASSIUM 3.9 mmol/L (3.5-5.1); SGOT/AST 14 U/L (15-37); SGPT/ALT 17 U/L (13-61); SODIUM 140 mmol/L (136-145); TOT PROT 6.8 g/dl (6.4-8.2)
--- NOTE | 2020-06-18 19:51 | PDOC ---
Attending Attestation - Resident Resident Name: Edward Scott - ED Attending Attestation I have performed the following: I have examined & evaluated the patient, The case was reviewed & discussed with the resident, I agree w/resident's findings & plan, Exceptions are as noted - HPI HPI: 74 yo F history coloectomy, HTN, mitral valve prolapse presents with episodes of weakness associated with palpitations. Symptoms are associated with sweating, nausea, lightheadedness. She states it happens with activity, at rest- any time. Symptom onset is abrupt, and abruptly resolves, as well, but she feels weak all the time. - Physicial Exam PE: GENERAL: Awake, alert, and fully oriented, in no acute distress HEAD: No signs of trauma EYES: PERRLA, EOMI, sclera anicteric, conjunctiva clear ENT: Auricles normal inspection, hearing grossly normal, nares patent, oropharynx clear without exudates. Moist mucosa NECK: Normal ROM, supple, no lymphadenopathy, JVD, or masses LUNGS: Breath sounds equal, clear to auscultation bilaterally. No wheezes, and no crackles HEART: Regular rate and rhythm, normal S1 and S2, no murmurs, rubs or gallops ABDOMEN: Soft, nontender, normoactive bowel sounds. No guarding, no rebound. No masses EXTREMITIES: Normal range of motion, no edema. No clubbing or cyanosis. No cords, erythema, or tenderness NEUROLOGICAL: Cranial nerves II through XII grossly intact. Normal speech. Motor and sensation intact SKIN: Warm, dry, normal turgor, no rashes or lesions noted. - Medical Decision Making 06/18/20 20:23 Based on stated history, concern that patient may be having episodic arrhythmias. Will plan for admission. Discharge - Discharge Information Problems reviewed: Yes Clinical Impression/Diagnosis: Pre-syncope Condition: Stable - Follow up/Referral - Patient Discharge Instructions - Post Discharge Activity
[2020-06-18 20:14] LABS: PH,URINE 7.5 (5.0-8.0); URINE APPEARANCE CLEAR; URINE BILIRUBIN NEGATIVE (NEGATIVE); URINE COLOR YELLOW; URINE GLUCOSE (UA) NEGATIVE (NEGATIVE); URINE KETONE NEGATIVE (NEGATIVE); URINE LEUK ESTERASE NEGATIVE (NEGATIVE); URINE NITRITE NEGATIVE (NEGATIVE); URINE PROTEIN NEGATIVE (NEGATIVE); URINE UROBILINOGEN 0.2 mg/dL (0.2-1.0)
--- NOTE | 2020-06-18 20:38 | PDOC ---
History of Present Illness - General Chief Complaint: Chest Pain Stated Complaint: CHEST PAIN Time Seen by Provider: 06/18/20 17:38 - History of Present Illness Initial Comments: 06/18/20 20:29 74yo F w/ hx of partial colectomy presents with worsening episodes of palpitations, cold sweats, nausea, and lightheadedness. She reports the episodes started several weeks ago and have gotten more frequent recently. There is no obvious trigger or way to resolve the episode. She describes abrupt onset and offset, and when the episodes end the symptoms do too. 06/18/20 20:41 No recent illness. no fevers, vomiting, diarrhea, rashes, travel, leg swelling. Endorses a hx of mitral valve prolapse for which she gets echocardiograms every few years. Endorses a partial colectomy s/p diverticulitis 06/18/20 20:49 Past History - Medical History Allergies/Adverse Reactions: Allergies Allergy/AdvReac Type Severity Reaction Status Date / Time brimonidine tartrate Allergy Severe heart Verified 06/18/20 17:39 [From Alphagan P] palpitations doxycycline Allergy Severe Rash Verified 06/18/20 17:39 metronidazole [From Flagyl] Allergy Intermediate Low Blood Verified 06/18/20 17:39 Pressure Metronidazole HCl Allergy Intermediate Verified 06/18/20 17:39 [From Flagyl] hydromorphone HCl AdvReac Severe Low Blood Verified 06/18/20 17:39 [From Dilaudid] Pressure Home Medications: Ambulatory Orders Alprazolam [Xanax] 0.25 mg PO BID 07/23/18 Pantoprazole Sodium [Protonix] 40 mg PO DAILY 05/23/19 Anemia: No Asthma: No Cancer: No Cardiac Disorders: Yes (MVP) CVA: No COPD: No CHF: No Dementia: No Diabetes: No GI Disorders: Yes (DIVERTICULITIS) Disorders: Yes HTN: No Hypercholesterolemia: No Liver Disease: No Seizures: No Thyroid Disease: No - Surgical History Abdominal Surgery: Yes (COLON RESECTION, ileostomy 03/03/12, CLOSURE OF ILEOSTOMY 2012) Appendectomy: No Cardiac Surgery: No Cholecystectomy: No Lung Surgery: No Neurologic Surgery: No Orthopedic Surgery: No - Psycho-Social/Smoking History Smoking Status: No Smoking History: Never smoked Have you smoked in the past 12 months: No Number of Cigarettes Smoked Daily: 0 If you are a former smoker, when did you quit?: 1972 - Substance Abuse Hx (Audit-C & DAST Scrn) How often the patient has a drink containing alcohol: Never Score: In Men: 4 or > Positive; In Women: 3 or > Positive: 0 Screen Result (Pos requires Nsg. Audit-10AR): Negative In the last yr the pt used illegal drug/Rx for NonMed reason: No Score: Yes response is considered Positive: 0 Screen Result (Positive result requires Nsg. DAST-10): Negative Review of Systems - Review of Systems Able to Perform ROS?: Yes Is the patient limited Tanzanian proficient: No Constitutional: Yes: Symptoms Reported, Chills, Malaise (intermittent). No: Diaphoresis, Fever HEENTM: No: Recent change in vision, Tinnitus Respiratory: No: Cough, Shortness of Breath, SOB with Exertion, Wheezing, Productive cough Cardiac (ROS): Yes: Lightheadedness, Palpitations, Chest Tightness. No: Chest Pain ABD/GI: Yes: Nausea. No: Constipated, Diarrhea, Difficulty Swallowing, Rectal Bleeding : No: Burning, Dysuria, Hematuria Musculoskeletal: No: Back Pain, Muscle Pain, Muscle Weakness Integumentary: No: Bruising, Rash Neurological: No: Headache, Tingling Endocrine: No: Symptoms Reported Hematologic/Lymphatic: No: Symptoms Reported All Other Systems: Reviewed and Negative *Physical Exam - Vital Signs Last Vital Signs Temp Pulse Resp BP Pulse Ox 97.8 F 78 16 167/74 100 06/18/20 17:39 06/18/20 17:39 06/18/20 17:39 06/18/20 17:39 06/18/20 17:39 - Physical Exam General Appearance: Yes: Nourished, Appropriately Dressed. No: Apparent Distress HEENT: positive: MIGUEL, Normal ENT Inspection, Normal Voice Neck: positive: Trachea midline, Supple. negative: Tender Respiratory/Chest: positive: Lungs Clear, Normal Breath Sounds. negative: Chest Tender, Respiratory Distress Cardiovascular: positive: Regular Rhythm, Regular Rate Gastrointestinal/Abdominal: positive: Normal Bowel Sounds, Soft. negative: Organomegaly Musculoskeletal: positive: Normal Inspection. negative: CVA Tenderness Extremity: positive: Normal Capillary Refill, Normal Inspection, Normal Range of Motion Integumentary: positive: Normal Color, Dry, Warm Neurologic: positive: Fully Oriented, Alert, Normal Response, Motor Strength 5/5 ED Treatment Course - LABORATORY CBC & Chemistry Diagram: 06/18/20 18:50 06/18/20 18:50 - ADDITIONAL ORDERS Additional order review: Laboratory Results 06/18/20 06/18/20 06/18/20 19:45 18:50 18:50 PT with INR 13.00 INR 1.10 H Sodium 140 Potassium 3.9 Chloride 107 Carbon Dioxide 28 Anion Gap 5 L BUN 10.7 Creatinine 0.6 Est GFR (CKD-EPI)AfAm 104.07 Est GFR (CKD-EPI)NonAf 89.79 Random Glucose 102 Calcium 8.5 Total Bilirubin 0.3 AST 14 L ALT 17 Alkaline Phosphatase 52 Creatine Kinase 48 Troponin I < 0.02 B-Natriuretic Peptide 100.1 Total Protein 6.8 Albumin 3.8 Urine Color Yellow Urine Appearance Clear Urine pH 7.5 D Ur Specific [place] 1.007 L Urine Protein Negative Urine Glucose (UA) Negative Urine Ketones Negative Urine Blood Negative Urine Nitrite Negative Urine Bilirubin Negative Urine Urobilinogen 0.2 Ur Leukocyte Esterase Negative 06/18/20 18:50 RBC 4.09 MCV 95.3 MCHC 34.2 RDW 13.4 MPV 7.5 Neutrophils % 58.9 D Lymphocytes % 30.0 D Monocytes % 9.8 Eosinophils % 0.7 Basophils % 0.6 - RADIOLOGY Radiology Studies Ordered: Category Date Time Status CHEST PA & LAT [RAD] Stat Radiology 06/18/20 20:06 Ordered Discharge - Discharge Information Problems reviewed: Yes Clinical Impression/Diagnosis: Pre-syncope Condition: Stable - Admission Yes - Follow up/Referral - Patient Discharge Instructions - Post Discharge Activity
--- OUTSIDE RECORDS SUMMARY | 2020-06-18 22:03 | XMS ---
:1945 Author Organization [facility] Care Team Providers Name Role Phone Som [...] is protected by Article 27-F of the [facility] Public Health law. If you continue you may haveaccess to information: Regarding HIV / AIDS; Provided by facilities licensed or operated by the [facility] Office of Mental Health; or Provided by the [facility] Office for People With Developmental Disabilities. If such information is present, then the following [facility] mandated warning applies: This information has [...] law may result in a fine or shelter sentence or both. A general authorization for the release of medical or other information is NOT sufficient authorization for further disclosure. Family History Family Member Family Member Family Member Date of Description Data Source(s) Name Gender Status Status Unknown Male Problem [facility] ([facility] ) Encounters Encounter Providers Location Date Indications Data Source(s ) Attender: Som 05/23/2020 [facility] ( [facility] 12:00:[address] [facility] Medical, ) Telehealth Attender: Som Samano 05/23/2020 12:00:00 AM E DT [facility] ([facility], ) Telehealth Medications Medication Brand Start Product Dose Route Administrative Pharmacy at Indications Reaction Description Data Name Date Form Instructions Instructions Source(s) Alprazolam ALPRAZ 05/11/ TABLET 60 complet ALPRA ZOLAM [facility] (St 0.25 MG OLAM:3 2019 [facility]'s Oral Tablet 95105 12:00: Medic al, ALPRAZOLAM: 00 AM ) 595468 EDT Cholecalcif VITAMI 02/14/ CAPSULE 30 complet VIT LAZARO D3 [facility] (St reji 1000 N 2019 ed [facility] UNT Oral D3:245 12:00: Medical , Capsule 500 00 AM PC) VITAMIN EDT D3:919573 CULTURELLE 02/14/ CAPSULE 30 complet CULTUR EBRNY [facility] (St DIGESTIVE 2019 ed DIGESTIVE [facility] HEALTH:1000 12:00: HEALTH Medi sal, 750 00 AM PC) EDT Docusate COLACE 07/28/ CAPSULE 30 complet COLACE [facility] (St Sodium 50 :46211 2018 ed [facility] MG Oral 61 12:00: Medical, Capsule 00 AM PC) [Colace] EST COLACE:[id number] Insurance Providers Payer name Policy type Policy ID Covered Covered green party's Policy P enio / Coverage green party ID relationship to [place] [facility] ormation type [place] [employer] [id number] SP [id number] CARE OPTIONS MEDICARE [id number] SP [id number] [place] [id number] 1 [id number] PART B [place] AAR MEDICARE [id number] 1 [id number] [place] [id number] PART B [place] AAR HEALTH [id number] SP [id number] CARE OPTIONS MEDICARE [id number] SP [id number] [id number] [facility] [id number] Self [id number] Healthcare Part B Medicare Medicare [id number] Self [id number] [id number] [place] Primary [facility] [id number] Self [id number] Healthcare Part B Medicare Medicare [id number] Self [id number] [id number] [place] [facility] [id number] Self [id number] Healthcare Part B Medicare Medicare [id number] Self [id number] [id number] [place] Primary [facility] [id number] Self [id number] Healthcare Part B Medicare Medicare [id number] Self [id number] N39 [place] Primary [employer]ALTH [id number] SP [id number] CARE OPTIONS Problems, Conditions, and Diagnoses Code Display Name Description Problem Type Effective Dates Data Source(s) R31.21 Asymptomatic ASYMPTOMATIC Problem 07/28/2019 [facility] (St microscopic MICROSCOPIC 12:00:00 AM EST [facility] hematuria [facility], PC) M54.5 Low back pain LOW BACK PAIN Problem 04/26/2019 [facility] ( St 12:00:00 AM EDJuan Jose Fernandezs Alonzo ) Z13.89 Encounter for ENCOUNTER FOR Problem 04/26/2019 [...] GEN ([facility] (procedure) 12:00:00 AM CANDIE Jones) OFFICE OUTPATIENT VISIT 05/23/2020 MEDG EN ([facility] 15 MINUTES 12:00:00 AM GEMINI Rosado ) Documentation of current 02/15/2020 MED [facility] ([facility] (procedure) 12:00:00 AM CANDIE Jones) OFFICE OUTPATIENT VISIT 02/15/2020 MED[facility] EN ([facility] 15 MINUTES 12:00:00 AM ED Aolnzo ) Documentation of current 02/15/2020 MED [facility] ([facility] medications (procedure) 12:00:00 AM CANDIE Jones) Documentation of current 02/15/2020 MED [facility] ([facility] medications (procedure) 12:00:00 AM CANDIE Jones) Documentation of current 07/28/2019 [facility] ([facility] [...] GEN ([facility] medications (procedure) 12:00:00 AM EST emily, ) Documentation of current 07/28/2019 MED [facility] ([facility] medications (procedure) 12:00:00 AM [facility] jasonical, ) OFFICE OUTPATIENT VISIT 07/28/2019 MEDG EN ([facility] 15 MINUTES 12:00:00 AM [facility], ) Documentation of current 04/26/2019 MED [facility] Documentation of current 04/26/2019 MED [facility] ([facility] Documentation of current 04/26/2019 MED [facility] ([facility] (procedure) 12:00:00 AM [facility] emily, ) Documentation of current 04/26/2019 MED GEN ([facility] medications (procedure) 12:00:00 AM [facility] OFFICE OUTPATIENT VISIT 04/26/2019 MEDG EN ([facility] 25 MINUTES 12:00:00 AM [facility], ) Social History Code Duration Value Status Description Data Source(s ) Smoking 05/23/2020 Marital Status completed Marital Status [facility] (St 12:00:00 AM [facility] [facility] 2 Lives Members 2 Lives PC) [...] (St 12:00:00 AM [facility], EDT ) Vital Signs ID Date Data Source UNK Name Value Range Interpretation Code Description Data Source(s) Heart rate 63 /min 63 /min [facility] ([facility] , ) Body mass index 18.3 kg/m2 18.3 kg/m2 [facility] (S t (BMI) [Ratio] [facility], ) Diastolic blood 66 mm[Hg] 66 mm[Hg] [facility] ([facility]) Systolic blood 136 mm[Hg] 136 mm[Hg] [facility] [place] Body weight 110 lb 110 lb [facility] ([facility]) Body height 65 in 65 in [facility] ([facility]) Heart rate 71 /min 71 /min [facility] ([facility]) Diastolic blood 62 mm[Hg] 62 mm[Hg] [facility] ([facility]) Systolic blood 133 mm[Hg] 133 mm[Hg] [facility] Body weight 110 lb 110 lb [facility] ([facility]) Heart rate 78 /min 78 /min [facility] ([facility]) Respiratory rate 16 /min 16 /min [facility] ( [facility]) Body temperature 97.9 F 97.9 F [facility] ( [facility]) Inhaled oxygen 98 % 98 % [facility] ([facility]) Body mass index 17 kg/m2 17 kg/m2 [facility] (S t (BMI) [Ratio] [facility], ) Diastolic blood 79 mm[Hg] 79 mm[Hg] [facility] ([facility]) Systolic blood 118 mm[Hg] 118 mm[Hg] [facility] [place] Body weight 102 lb 102 lb [facility] ([facility]) Body height 65 in 65 in [facility] ([facility]) Heart rate 63 /min 63 /min [facility] ([facility]) Respiratory rate 15 /min 15 /min [facility] ( [facility]) Body temperature 98.3 F 98.3 F [facility] ( [facility]) Inhaled oxygen 96 % 96 % [facility] ([facility]) Body mass index 17.6 kg/m2 17.6 kg/m2 [facility] (S t (BMI) [Ratio] [facility], ) Diastolic blood 72 mm[Hg] 72 mm[Hg] [facility] (S t pressure [facility] [place] Systolic blood 156 mm[Hg] 156 mm[Hg] [facility] ([facility] , ) Body weight 106 lb 106 lb [facility] ([facility] , ) Body height 65 in 65 in [facility] ([facility] , )
[2020-06-18] MEDS ORDERED: ACETAMINOPHEN 325 MG TABLET (FP) PO ONE (23:08)
--- NOTE | 2020-06-18 23:08 | HP ---
CHIEF COMPLAINT: here with worsening intermittent palpitations, cold sweats, nausea and lightheadedness PCP:Dr. Leon HISTORY OF PRESENT ILLNESS: 74 year old female with a past medical history of partial colectomy and mitral valve prolapse who presents with worsening episodes of intermittent palpitations, cold sweats, nausea, and lightheadedness. She denied chest pain, shortness of breath or syncopy. She reports symptoms started about 6 months ago and have gotten more frequent recently. There is no obvious trigger, describes symptoms as abrupt onset and offset, and when the episodes end the symptoms do too. She reports she was seen previously by Dr. Stevenson and she had a Holter monitor and was seen once for results, was not started on any new medications and she reported she had no routine follow up.Currently she is in a normal sinus rhythm. She is hemodynamcially stable. ER course notable for normal lab findings. EKG- normal sinus rhythm heart rate 70s's. Recent Travel: no PAST MEDICAL HISTORY: mitral valve prolapse PAST SURGICAL HISTORY: partial colectomy Social History: Smoking:no Alcohol:no Drugs:no Family History: noncontributory Allergies brimonidine tartrate [From Alphagan P] Allergy (Severe, Verified 06/18/20 17:39) heart palpitations doxycycline Allergy (Severe, Verified 06/18/20 17:39) Rash metronidazole [From Flagyl] Allergy (Intermediate, Verified 06/18/20 17:39) Low Blood Pressure headache,JITTERY,ANXIOUS Metronidazole HCl [From Flagyl] Allergy (Intermediate, Verified 06/18/20 17:39) hydromorphone HCl [From Dilaudid] Adverse Reaction (Severe, Verified 06/18/20 17:39) Low Blood Pressure AGITATION,ANXIOUS HOME MEDICATIONS: Home Medications Medication Instructions Recorded Alprazolam [Xanax] 0.25 mg PO BID 07/23/18 Pantoprazole Sodium [Protonix] 40 mg PO DAILY 05/23/19 REVIEW OF SYSTEMS CONSTITUTIONAL: Absent: fever, chills, diaphoresis, generalized weakness, malaise, loss of appetite, weight change HEENT: Absent: rhinorrhea, nasal congestion, throat pain, throat swelling, difficulty swallowing, mouth swelling, ear pain, eye pain, visual changes CARDIOVASCULAR: Absent: chest pain, syncope, palpitations, irregular heart rate, lightheadedness, peripheral edema RESPIRATORY: Absent: cough, shortness of breath, dyspnea with exertion, orthopnea, wheezing, stridor, hemoptysis GASTROINTESTINAL: Absent: abdominal pain, abdominal distension, nausea, vomiting, diarrhea, constipation, melena, hematochezia GENITOURINARY: Absent: dysuria, frequency, urgency, hesitancy, hematuria, flank pain, genital pain MUSCULOSKELETAL: Absent: myalgia, arthralgia, joint swelling, back pain, neck pain SKIN: Absent: rash, itching, pallor HEMATOLOGIC/IMMUNOLOGIC: Absent: easy bleeding, easy bruising, lymphadenopathy, frequent infections ENDOCRINE: Absent: unexplained weight gain, unexplained weight loss, heat intolerance, cold intolerance NEUROLOGIC: Absent: headache, focal weakness or paresthesias, dizziness, unsteady gait, s eizure, mental status changes, bladder or bowel incontinence PSYCHIATRIC: Absent: anxiety, depression, suicidal or homicidal ideation, hallucinations. PHYSICAL EXAMINATION Vital Signs - 24 hr 06/18/20 06/18/20 17:39 20:45 Temperature 97.8 F Pulse Rate 78 Pulse Rate [ 68 Left Radial] Respiratory 16 18 Rate Blood Pressure 167/74 Blood Pressure 155/74 [Left Arm] O2 Sat by Pulse 100 99 Oximetry (%) General no acute distress Vital signs reviewed afebrile Lungs CTA nonlabored breathing effort no rales no wheezing Heart s1s2 rate regular Abdomen soft nontender nondistended Extremities warm to touch no pitting edema no cyanosis Skin nail beds and lips pink Mood calm Laboratory Results - last 24 hr 06/18/20 06/18/20 06/18/20 18:50 18:50 18:50 WBC 4.9 RBC 4.09 Hgb 13.3 Hct 38.9 MCV 95.3 MCH 32.6 MCHC 34.2 RDW 13.4 Plt Count 239 MPV 7.5 Absolute Neuts (auto) 2.9 Neutrophils % 58.9 D Lymphocytes % 30.0 D Monocytes % 9.8 Eosinophils % 0.7 Basophils % 0.6 Nucleated RBC % 0 PT with INR 13.00 INR 1.10 H Sodium 140 Potassium 3.9 Chloride 107 Carbon Dioxide 28 Anion Gap 5 L BUN 10.7 Creatinine 0.6 Est GFR (CKD-EPI)AfAm 104.07 Est GFR (CKD-EPI)NonAf 89.79 Random Glucose 102 Calcium 8.5 Total Bilirubin 0.3 AST 14 L ALT 17 Alkaline Phosphatase 52 Creatine Kinase 48 Troponin I < 0.02 B-Natriuretic Peptide 100.1 Total Protein 6.8 Albumin 3.8 Urine Color Urine Appearance Urine pH Ur Specific [place] Urine Protein Urine Glucose (UA) Urine Ketones Urine Blood Urine Nitrite Urine Bilirubin Urine Urobilinogen Ur Leukocyte Esterase 06/18/20 19:45 WBC RBC Hgb Hct MCV MCH MCHC RDW Plt Count MPV Absolute Neuts (auto) Neutrophils % Lymphocytes % Monocytes % Eosinophils % Basophils % Nucleated RBC % PT with INR INR Sodium Potassium Chloride Carbon Dioxide Anion Gap BUN Creatinine Est GFR (CKD-EPI)AfAm Est GFR (CKD-EPI)NonAf Random Glucose Calcium Total Bilirubin AST ALT Alkaline Phosphatase Creatine Kinase Troponin I B-Natriuretic Peptide Total Protein Albumin Urine Color Yellow Urine Appearance Clear Urine pH 7.5 D Ur Specific [place] 1.007 L Urine Protein Negative Urine Glucose (UA) Negative Urine Ketones Negative Urine Blood Negative Urine Nitrite Negative Urine Bilirubin Negative Urine Urobilinogen 0.2 Ur Leukocyte Esterase Negative ASSESSMENT/PLAN: 74 year old female with a past medical history of partial colectomy and mitral valve prolapse who presents with worsening symptoms of palpitations, cold sweats, nausea, and lightheadedness. She is being admitted to observation to telemetry to exclude arrthymia. 1. Palpitations/Rule Out Arrthymia currently asymptomatic, SBP 150-160's EKG- sinus rhythm, rate controlled, troponin and BNP normal monitor on telemetry for arrthymia check thyroid panel echocardiogram ordered monitor electrolytes, maintain potassium >4.0 and magnesium >2.0 Cardiology- Dr. Stevenson consulted 2. Rule Out COVID follow up on COVID PCR results maintain strict isolation for airborne/droplet maintain 02 sat >90% FEN no IVF indicated monitor BMP daily and replete electrolytes as needed regular diet DVT Prophylaxis SCD's Family Medical History Family History: Denies Visit type - Medication Review Med list reviewed for High Risk Meds patients 65 and older: Yes - Emergency Visit Emergency Visit: Yes ED Registration Date: 06/18/20 Care time: The patient presented to the Emergency Department on the above date and was hospitalized for further evaluation of their emergent condition. - New Patient This patient is new to me today: Yes Date on this admission: 06/18/20 - Critical Care Critical Care patient: No
[2020-06-19] MEDS ORDERED: ATROPINE SULFATE 1 MG/10 ML DISP.SYRIN IVPUSH ONE (03:17)
[2020-06-19] MEDS ORDERED: SODIUM CHLORIDE 0.9% 500 ML INFUS.BAG IV ONE (03:17)
[2020-06-19 04:23] LABS: MAGNESIUM 1.8 mg/dL (1.8-2.4)
[2020-06-19 06:53] LABS: HEMATOCRIT 37.1 % (32.4-45.2); HEMOGLOBIN 12.5 GM/dL (10.7-15.3); MCHC 33.7 g/dl (32.0-36.0); MEAN CELL VOLUME 95.1 fl (80-96); MEAN PLT VOLUME 8.4 fl (7.5-11.1); PLATELET COUNT 197 K/MM3 (134-434); RBC 3.91 M/mm3 (3.60-5.2); RDW 13.3 % (11.6-15.6); WHITE BLOOD COUNT 4.2 K/mm3 (4.0-10.0)
[2020-06-19 07:21] LABS: BLOOD UREA NITROGEN 9.2 mg/dL (7-18); CALCIUM 8.4 mg/dL (8.5-10.1); CREATININE 0.5 mg/dL (0.55-1.3); POTASSIUM 4.2 mmol/L (3.5-5.1)
[2020-06-19] MEDS ORDERED: PANTOPRAZOLE 40 MG TABLET ONE (10:05)
[2020-06-19] MEDS ORDERED: ALPRAZolam 0.25 MG TABLET ONE (10:05)
--- NOTE | 2020-06-19 10:06 | EKG ---
Test Reason : Blood Pressure : / mmHG Vent. Rate : 067 BPM Atrial Rate : 067 BPM P-R Int : 152 ms QRS Dur : 092 ms QT Int : 390 ms P-R-T Axes : 082 004 066 degrees QTc Int : 412 ms NORMAL SINUS RHYTHM NONSPECIFIC T WAVE ABNORMALITY ABNORMAL ECG WHEN COMPARED WITH ECG OF 23-MAY-2019 06:42, NO SIGNIFICANT CHANGE WAS FOUND Confirmed by MD Gary, Edward ([id number]) on 06/19/2020 10:05:58 AM Referred By: Confirmed By:Edward Vega MD
[2020-06-19] MEDS: PANTOPRAZOLE 40 MG TABLET PO SCH (10:07)
[2020-06-19] MEDS: ALPRAZolam 0.25 MG TABLET PO SCH ×2 (10:08→21:08)
--- NOTE | 2020-06-19 12:36 | PN ---
Teaching Attending Note Name of Resident: Yaquelin Franco ATTENDING PHYSICIAN STATEMENT I saw and evaluated the patient. I reviewed the resident's note and discussed the case with the resident. I agree with the resident's findings and plan as documented. SUBJECTIVE: pt seen and examined at bedside OBJECTIVE: Last Vital Signs Temp Pulse Resp BP Pulse Ox 98.4 F 68 18 139/58 L 100 06/19/20 09:56 06/19/20 09:56 06/19/20 09:56 06/19/20 09:56 06/19/20 09:56 GENERAL: Awake, alert, and fully oriented, in no acute distress. HEAD: Normal with no signs of trauma. EYES: Pupils equal, round and reactive to light, sclera anicteric, conjunctiva clear. LUNGS: Breath sounds equal, clear to auscultation bilaterally. No wheezes, and no crackles. No accessory muscle use. HEART: Regular rate and rhythm, normal S1 and S2, systolic murmur and click ABDOMEN: Soft, nontender, not distended MUSCULOSKELETAL: Normal range of motion at all joints. No bony deformities or tenderness. No CVA tenderness. UPPER EXTREMITIES: 2+ pulses, warm, well-perfused. No cyanosis. No clubbing. No peripheral edema. LOWER EXTREMITIES: 2+ pulses, warm, well-perfused. No calf tenderness. No peripheral edema. NEUROLOGICAL: Cranial nerves II-XII intact. Normal speech. CBCD WBC 4.2 K/mm3 (4.0-10.0) 06/19/20 05:57 RBC 3.91 M/mm3 (3.60-5.2) 06/19/20 05:57 Hgb 12.5 GM/dL (10.7-15.3) 06/19/20 05:57 Hct 37.1 % (32.4-45.2) 06/19/20 05:57 MCV 95.1 fl (80-96) 06/19/20 05:57 MCHC 33.7 g/dl (32.0-36.0) 06/19/20 05:57 RDW 13.3 % (11.6-15.6) 06/19/20 05:57 Plt Count 197 K/MM3 (134-434) 06/19/20 05:57 MPV 8.4 fl (7.5-11.1) D 06/19/20 05:57 CMP Sodium 140 mmol/L (136-145) 06/19/20 05:57 Potassium 4.2 mmol/L (3.5-5.1) 06/19/20 05:57 Chloride 110 mmol/L (98-107) H 06/19/20 05:57 Carbon Dioxide 25 mmol/L (21-32) 06/19/20 05:57 Anion Gap 5 MMOL/L (8-16) L 06/19/20 05:57 BUN 9.2 mg/dL (7-18) 06/19/20 05:57 Creatinine 0.5 mg/dL (0.55-1.3) L 06/19/20 05:57 Random Glucose 94 mg/dL (74-106) 06/19/20 05:57 Calcium 8.4 mg/dL (8.5-10.1) L 06/19/20 05:57 Total Bilirubin 0.3 mg/dL (0.2-1) 06/18/20 18:50 AST 14 U/L (15-37) L 06/18/20 18:50 ALT 17 U/L (13-61) 06/18/20 18:50 Alkaline Phosphatase 52 U/L (45-117) 06/18/20 18:50 Total Protein 6.8 g/dl (6.4-8.2) 06/18/20 18:50 Albumin 3.8 g/dl (3.4-5.0) 06/18/20 18:50 CARDIAC ENZYMES Creatine Kinase 48 U/L (26-192) 06/18/20 18:50 Troponin I < 0.02 ng/ml (0.00-0.05) 06/19/20 03:30 Active Medications Alprazolam (Xanax -) 0.25 mg PO BID [facility] Last Admin: 06/19/20 10:08 Dose: 0.25 mg Documented by: Pantoprazole Sodium (Protonix -) 40 mg PO DAILY [facility] Last Admin: 06/19/20 10:07 Dose: 40 mg Documented by: ASSESSMENT AND PLAN: 74 year old lady with a Mhx of partial colectomy and mitral valve prolapse who presents with worsening episodes of intermittent palpitations, cold sweats, nausea, and lightheadedness # Recurrent Vasovagal presyncope/syncope likely 2/2 autonomic dysfunction pt unable to identify triggers EKG reviewed, ECHO in 2018 non remarkable no clinically significant electrolyte abnormalities reports of negative holter study as outpatient recurrent episodes interfering with daily routine cardiology consult Diverticulosis MVP DVT prophylaxis
--- NOTE | 2020-06-19 13:49 | CON.CARD ---
Consult Consult Specialty:: cardiology Referred by:: medicine Reason for Consultation:: bradycardia - History of Present Illness Chief Complaint: dizziness History of Present Illness: 74F h/o partial colectomy, mitral valve prolapse p/w palpitations, dizziness, cold sweats, nausea. She has had this intermittenly, sees me for cardio, last evaluated 01/2019. At that time echo and 7 day event monitor were unremarkable except for brief episodes of SVT, no bradycardia, symptoms were similar and thought to be vagal mediated. Now having these symptoms more frequently again, starts as nausea, shaking and then develops cold sweats and feels dizziness no syncope. In the ER she had an episode, noted on tele to have HR in the 30s and SBP in the 70s during episode, received atropine with improvement. - Past Surgical History Past Surgical History: Yes: Colectomy - Alcohol/Substance Use Hx Alcohol Use: No - Smoking History Smoking history: Never smoked Have you smoked in the past 12 months: No Aproximately how many cigarettes per day: 0 If you are a former smoker, when did you quit?: 1973 Home Medications - Allergies Allergies/Adverse Reactions: Allergies Allergy/AdvReac Type Severity Reaction Status Date / Time brimonidine tartrate Allergy Severe heart Verified 06/18/20 17:39 [From Alphagan P] palpitations doxycycline Allergy Severe Rash Verified 06/18/20 17:39 metronidazole [From Flagyl] Allergy Intermediate Low Blood Verified 06/18/20 17: 39 Pressure Metronidazole HCl Allergy Intermediate Verified 06/18/20 17:39 [From Flagyl] hydromorphone HCl AdvReac Severe Low Blood Verified 06/18/20 17:39 [From Dilaudid] Pressure - Home Medications Home Medications: Ambulatory Orders Alprazolam [Xanax] 0.25 mg PO BID 07/23/18 Pantoprazole Sodium [Protonix] 40 mg PO DAILY 05/23/19 Family Medical History Family History: Unremarkable Review of Systems - Review of Systems Constitutional: reports: No Symptoms Eyes: reports: No Symptoms HENT: reports: No Symptoms Neck: reports: No Symptoms Cardiovascular: reports: No Symptoms Respiratory: reports: No Symptoms Gastrointestinal: reports: No Symptoms Genitourinary: reports: No Symptoms Musculoskeletal: reports: No Symptoms Integumentary: reports: No Symptoms Neurological: reports: No Symptoms Endocrine: reports: No Symptoms Hematology/Lymphatic: reports: No Symptoms Psychiatric: reports: No Symptoms Vital Signs: Vital Signs Temperature 98.4 F 06/19/20 09:56 Pulse Rate 68 06/19/20 09:56 Respiratory Rate 18 06/19/20 09:56 Blood Pressure 139/58 L 06/19/20 09:56 O2 Sat by Pulse Oximetry (%) 100 06/19/20 09:56 Constitutional: Yes: Well Nourished, No Distress, Calm Eyes: Yes: Conjunctiva Clear, EOM Intact HENT: Yes: Atraumatic, Normocephalic Neck: Yes: Supple, Trachea Midline Respiratory: Yes: Regular, CTA Bilaterally Gastrointestinal: Yes: Normal Bowel Sounds, Soft Cardiovascular: Yes: Regular Rate and Rhythm JVD: No Heart Sounds: Yes: S1, S2 Extremities: No: Cold Edema: No Integumentary: No: Jaundice Neurological: Yes: Alert, Oriented Psychiatric: No: Agitated - Other Data Labs, Other Data: CBC, BMP 06/19/20 05:57 06/19/20 05:57 INR, PTT INR 1.10 (0.83-1.09) H 06/18/20 18:50 Troponin, BNP 06/18/20 06/19/20 18:50 03:30 Troponin I < 0.02 < 0.02 B-Natriuretic Peptide 100.1 Troponin, BNP 06/18/20 06/19/20 18:50 03:30 Troponin I < 0.02 < 0.02 B-Natriuretic Peptide 100.1 Assessment/Plan Event monitor 10/2018 brief run of SVT vs NSVT (6 beats), asymptomatic EKG 10/2018 sinus, nl intervals, no ischemic chnages EKG 09/2018 DFH: sinus bradycardia, no ischemic changes Echo 04/2018 nl LV/RV function, mild MR, mild prolapse of post leaflet of MV, trace TR. EKG: sinus, nl intervals, no ischemic changes tele: sinus with episode of sinus dea at 3 AM, no AV block 74F h/o partial colectomy, mitral valve prolapse p/w palpitations, dizziness, cold sweats, nausea bradycardia, presyncope, palpitations - sinus bradycardia noted on tele - reviewed tele strips with EP at [facility] [place], likely vagal episode in setting of nausea - no indication for pacemaker - check echo - cont monitoring on tele nausea, history of abd pain, colectomy, diverticulosis - manage per primary mitral valve prolapse - mild prolapse of posterior leaflet with mild MR in 2018, repeat echo pending
--- NOTE | 2020-06-19 15:57 | PN ---
Physical Exam: SUBJECTIVE: Patient seen and examined. OBJECTIVE: Vital Signs Period Temp Pulse Resp BP Sys/Brown Pulse Ox Last 24 Hr 97.8 F-98.4 F 34-99 16-22 72-167/39-75 98-100 GENERAL: The patient is awake, alert, and fully oriented, in no acute distress. HEAD: Normal with no signs of trauma. EYES: PERRL, extraocular movements intact, sclera anicteric, conjunctiva clear. No ptosis. ENT: Ears normal, nares patent, oropharynx clear without exudates, moist mucous membranes. NECK: Trachea midline, full range of motion, supple. LUNGS: Breath sounds equal, clear to auscultation bilaterally, no wheezes, no crackles, no accessory muscle use. HEART: Regular rate and rhythm, S1, S2 without murmur, rub or gallop. ABDOMEN: Soft, nontender, nondistended, normoactive bowel sounds, no guarding, no rebound, no hepatosplenomegaly, no masses. EXTREMITIES: 2+ pulses, warm, well-perfused, no edema. NEUROLOGICAL: Cranial nerves II through XII grossly intact. Normal speech, gait not observed. PSYCH: Normal mood, normal affect. SKIN: Warm, dry, normal turgor, no rashes or lesions noted Laboratory Results - last 24 hr 06/18/20 06/18/20 06/18/20 18:50 18:50 18:50 WBC 4.9 RBC 4.09 Hgb 13.3 Hct 38.9 MCV 95.3 MCH 32.6 MCHC 34.2 RDW 13.4 Plt Count 239 MPV 7.5 Absolute Neuts (auto) 2.9 Neutrophils % 58.9 D Lymphocytes % 30.0 D Monocytes % 9.8 Eosinophils % 0.7 Basophils % 0.6 Nucleated RBC % 0 PT with INR 13.00 INR 1.10 H Sodium 140 Potassium 3.9 Chloride 107 Carbon Dioxide 28 Anion Gap 5 L BUN 10.7 Creatinine 0.6 Est GFR (CKD-EPI)AfAm 104.07 Est GFR (CKD-EPI)NonAf 89.79 Random Glucose 102 Calcium 8.5 Magnesium Total Bilirubin 0.3 AST 14 L ALT 17 Alkaline Phosphatase 52 Creatine Kinase 48 Troponin I < 0.02 B-Natriuretic Peptide 100.1 Total Protein 6.8 Albumin 3.8 TSH Free T4 Urine Color Urine Appearance Urine pH Ur Specific [place] Urine Protein Urine Glucose (UA) Urine Ketones Urine Blood Urine Nitrite Urine Bilirubin Urine Urobilinogen Ur Leukocyte Esterase 06/18/20 06/19/20 06/19/20 19:45 03:30 05:57 WBC 4.2 RBC 3.91 Hgb 12.5 Hct 37.1 MCV 95.1 MCH 32.0 MCHC 33.7 RDW 13.3 Plt Count 197 MPV 8.4 D Absolute Neuts (auto) Neutrophils % Lymphocytes % Monocytes % Eosinophils % Basophils % Nucleated RBC % PT with INR INR Sodium Potassium Chloride Carbon Dioxide Anion Gap BUN Creatinine Est GFR (CKD-EPI)AfAm Est GFR (CKD-EPI)NonAf Random Glucose Calcium Magnesium 1.8 Total Bilirubin AST ALT Alkaline Phosphatase Creatine Kinase Troponin I < 0.02 B-Natriuretic Peptide Total Protein Albumin TSH Free T4 Urine Color Yellow Urine Appearance Clear Urine pH 7.5 D Ur Specific [place] 1.007 L Urine Protein Negative Urine Glucose (UA) Negative Urine Ketones Negative Urine Blood Negative Urine Nitrite Negative Urine Bilirubin Negative Urine Urobilinogen 0.2 Ur Leukocyte Esterase Negative 06/19/20 06/19/20 05:57 05:57 WBC RBC Hgb Hct MCV MCH MCHC RDW Plt Count MPV Absolute Neuts (auto) Neutrophils % Lymphocytes % Monocytes % Eosinophils % Basophils % Nucleated RBC % PT with INR INR Sodium 140 Potassium 4.2 Chloride 110 H Carbon Dioxide 25 Anion Gap 5 L BUN 9.2 Creatinine 0.5 L Est GFR (CKD-EPI)AfAm 110.50 Est GFR (CKD-EPI)NonAf 95.34 Random Glucose 94 Calcium 8.4 L Magnesium Total Bilirubin AST ALT Alkaline Phosphatase Creatine Kinase Troponin I B-Natriuretic Peptide Total Protein Albumin TSH 1.52 Free T4 1.32 Urine Color Urine Appearance Urine pH Ur Specific [place] Urine Protein Urine Glucose (UA) Urine Ketones Urine Blood Urine Nitrite Urine Bilirubin Urine Urobilinogen Ur Leukocyte Esterase Active Medications Generic Name Dose Route Start Last Admin Trade Name Freq PRN Reason Stop Dose Admin Alprazolam 0.25 mg 06/19/20 10:00 06/19/20 10:08 Xanax - PO 0.25 mg BID MARTIN Administration Pantoprazole Sodium 40 mg 06/19/20 10:00 06/19/20 10:07 Protonix - PO 40 mg DAILY MARTIN Administration ASSESSMENT/PLAN: Pt is a 74 year old female with a PMHx of partial colectomy and mitral valve prolapse who presents with worsening episodes of intermittent palpitations, cold sweats, nausea, and lightheadedness. #Recurrent vasovagal presyncope/syncope -likely 2/2 autonomic dysfunction due to presentation -EKG reviewed, echo pending -cardio consulted; seen by Dr. Stevenson in past, Holter placed for same symptoms with no findings, states no need for pacemaker currently; follow up outpatient #Hx of diverticulosis -asymptomatic -partial colectomy in past PPx protonix 40mg daily FEN No standing fluids Monitor electrolytes Dispo Monitor on tele. ATTENDING PHYSICIAN STATEMENT I saw and evaluated the patient. I reviewed the resident's note and discussed the case with the resident. I agree with the resident's findings and plan as documented. SUBJECTIVE: OBJECTIVE: ASSESSMENT AND PLAN:
[2020-06-19 20:24] VITALS: PULSE 70
[2020-06-20 07:40] LABS: HEMATOCRIT 37.4 % (32.4-45.2); HEMOGLOBIN 12.8 GM/dL (10.7-15.3); MCH 32.5 pg (25.7-33.7); MCHC 34.2 g/dl (32.0-36.0); MEAN CELL VOLUME 95.1 fl (80-96); MEAN PLT VOLUME 8.1 fl (7.5-11.1); PLATELET COUNT 162 K/MM3 (134-434); RBC 3.93 M/mm3 (3.60-5.2); RDW 13.4 % (11.6-15.6); WHITE BLOOD COUNT 4.6 K/mm3 (4.0-10.0)
[2020-06-20 08:16] LABS: CALCIUM 8.8 mg/dL (8.5-10.1); CREATININE 0.6 mg/dL (0.55-1.3); MAGNESIUM 2.1 mg/dL (1.8-2.4); PHOSPHOROUS 3.5 mg/dL (2.5-4.9); POTASSIUM 3.8 mmol/L (3.5-5.1)
[2020-06-20 09:23] VITALS: BP 132/63; TEMP 98
[2020-06-20] MEDS: PANTOPRAZOLE 40 MG TABLET PO SCH (09:31)
[2020-06-20] MEDS: ALPRAZolam 0.25 MG TABLET PO SCH (09:31)
--- NOTE | 2020-06-20 10:11 | ECHO ---
Version: 1 Name: MERLINE BLOCK Exam: Adult Echocardiogram Study Date: 06/19/2020, 3:15 PM Age: 74 Years MMode/2D Measurements & Calculations IVSd: 0.75 cm LVIDs: 2.7 cm LVIDd: 4.0 cm LVPWd: 1.09 cm LVOT diam: 1.90 cm Ao root diam: 2.5 cm LA dimension: 2.39 cm Doppler Measurements & Calculations MV E max edgar: 78.1 cm/sec Med E/e': 11.0 MV A max edgar: 90.7 cm/sec Med Peak E' Edgar: 7.1 cm/sec MV E/A: 0.86 Lat E/e': 12.4 Lat Peak E' Edgar: 6.3 cm/sec MR max P.3 mmHg Ao max P.4 mmHg Ao V2 max: 152.2 cm/sec AI P1/2t: 595.8 msec TR max edgar: 270.0 cm/sec TR max P.2 mmHg Left Ventricle The left ventricular size, thickness and function are normal. EF 61%. Grade I diastolic dysfunction, (abnormal relaxation pattern). Right Ventricle The right ventricle is normal in size and function. Atria The left atrial size is normal. Right atrial size is normal. Mitral Valve The mitral valve is normal in structure and function. There is mild mitral regurgitation. Tricuspid Valve The tricuspid valve is normal in structure and function. There is mild tricuspid regurgitation. PASP 34 mmHg. Aortic Valve The aortic valve is normal in structure and function. Mild aortic regurgitation. Pulmonic Valve The pulmonic valve is not well seen, but is grossly normal. Great Vessels The aortic root is normal size. Pericardium/Pleura There is no pericardial effusion. Summary Statements The left ventricular size, thickness and function are normal EF 61% Grade I diastolic dysfunction, (abnormal relaxation pattern). The right ventricle is normal in size and function. The left atrial size is normal. Right atrial size is normal. The mitral valve is normal in structure and function. There is mild mitral regurgitation. The tricuspid valve is normal in structure and function. There is mild tricuspid regurgitation. PASP 34 mmHg The aortic valve is normal in structure and function. Mild aortic regurgitation. MD Edward Vega 06/20/2020, 10:11 AM Ordering Physician: Tomasa Rojas Referring Physician: TOMASA ROJAS Performed By: Sasha Rand
--- NOTE | 2020-06-20 12:25 | PN ---
Teaching Attending Note Name of Resident: Porfirio Wiggins ATTENDING PHYSICIAN STATEMENT I saw and evaluated the patient. I reviewed the resident's note and discussed the case with the resident. I agree with the resident's findings and plan as documented. SUBJECTIVE: pt seen and examined OBJECTIVE: Last Vital Signs Temp Pulse Resp BP Pulse Ox 98.0 F 70 18 132/63 96 06/20/20 09:00 06/20/20 09:21 06/20/20 09:21 06/20/20 09:21 06/20/20 09:21 GENERAL: Awake, alert, and fully oriented, in no acute distress. HEAD: Normal with no signs of trauma. EYES: Pupils equal, round and reactive to light, sclera anicteric, conjunctiva clear. LUNGS: Breath sounds equal, clear to auscultation bilaterally. No wheezes, and no crackles. No accessory muscle use. HEART: Regular rate and rhythm, normal S1 and S2 ABDOMEN: Soft, nontender, not distended MUSCULOSKELETAL: Normal range of motion at all joints. No bony deformities or tenderness. No CVA tenderness. UPPER EXTREMITIES: 2+ pulses, warm, well-perfused. No cyanosis. No clubbing. No peripheral edema. LOWER EXTREMITIES: 2+ pulses, warm, well-perfused. No calf tenderness. No peripheral edema. NEUROLOGICAL: Cranial nerves II-XII intact. Normal speech. CBCD WBC 4.6 K/mm3 (4.0-10.0) 06/20/20 05:36 RBC 3.93 M/mm3 (3.60-5.2) 06/20/20 05:36 Hgb 12.8 GM/dL (10.7-15.3) 06/20/20 05:36 Hct 37.4 % (32.4-45.2) 06/20/20 05:36 MCV 95.1 fl (80-96) 06/20/20 05:36 MCHC 34.2 g/dl (32.0-36.0) 06/20/20 05:36 RDW 13.4 % (11.6-15.6) 06/20/20 05:36 Plt Count 162 K/MM3 (134-434) 06/20/20 05:36 MPV 8.1 fl (7.5-11.1) 06/20/20 05:36 CMP Sodium 136 mmol/L (136-145) 06/20/20 05:36 Potassium 3.8 mmol/L (3.5-5.1) 06/20/20 05:36 Chloride 104 mmol/L (98-107) 06/20/20 05:36 Carbon Dioxide 26 mmol/L (21-32) 06/20/20 05:36 Anion Gap 6 MMOL/L (8-16) L 06/20/20 05:36 BUN 14.0 mg/dL (7-18) 06/20/20 05:36 Creatinine 0.6 mg/dL (0.55-1.3) 06/20/20 05:36 Calcium 8.8 mg/dL (8.5-10.1) 06/20/20 05:36 Total Bilirubin 0.3 mg/dL (0.2-1) 06/18/20 18:50 AST 14 U/L (15-37) L 06/18/20 18:50 ALT 17 U/L (13-61) 06/18/20 18:50 Alkaline Phosphatase 52 U/L (45-117) 06/18/20 18:50 Total Protein 6.8 g/dl (6.4-8.2) 06/18/20 18:50 Albumin 3.8 g/dl (3.4-5.0) 06/18/20 18:50 Active Medications Alprazolam (Xanax -) 0.25 mg PO BID [facility] Last Admin: 06/20/20 09:31 Dose: 0.25 mg Documented by: Pantoprazole Sodium (Protonix -) 40 mg PO DAILY [facility] Last Admin: 06/20/20 09:31 Dose: 40 mg Documented by: ASSESSMENT AND PLAN: 74 year old lady with a Mhx of partial colectomy and mitral valve prolapse who presents with worsening episodes of intermittent palpitations, cold sweats, nausea, and lightheadedness # Recurrent Vasovagal presyncope/syncope likely 2/2 autonomic dysfunction pt unable to identify triggers EKG reviewed, ECHO in 2018 non remarkable repeat ECHO non remarkable as well no clinically significant electrolyte abnormalities reports of negative holter study as outpatient recurrent episodes interfering with daily routine cardiology consult appreciated, no further work up from cardiology point for outpatient follow up with PCP/cardio adviced to maintain hydration PT Diverticulosis MVP DVT prophylaxis
--- NOTE | 2020-06-20 12:28 | PN ---
Progress Note (short form) - Note Progress Note: Chief Complaint: dizziness s: no chest pain, palps, dizziness, dyspnea Current Medications Generic Name Dose Route Start Last Admin Trade Name Franki PRN Reason Stop Dose Admin Alprazolam 0.25 mg 06/19/20 10:00 06/20/20 09:31 Xanax - PO 0.25 mg BID MARTIN Administration Pantoprazole Sodium 40 mg 06/19/20 10:00 06/20/20 09:31 Protonix - PO 40 mg DAILY MARTIN Administration Vital Signs Period Temp Pulse Resp BP Sys/Brown Pulse Ox Last 24 Hr 98.0 F-98.8 F 20 18-20 118-148/62-82 96-100 Constitutional: Yes: Well Nourished, No Distress, Calm Eyes: Yes: Conjunctiva Clear, EOM Intact HENT: Yes: Atraumatic, Normocephalic Neck: Yes: Supple, Trachea Midline Respiratory: Yes: Regular, CTA Bilaterally Gastrointestinal: Yes: Normal Bowel Sounds, Soft Cardiovascular: Yes: Regular Rate and Rhythm JVD: No Heart Sounds: Yes: S1, S2 Extremities: No: Cold Edema: No Integumentary: No: Jaundice Neurological: Yes: Alert, Oriented Psychiatric: No: Agitated Laboratory Last Values WBC 4.6 K/mm3 (4.0-10.0) 06/20/20 05:36 RBC 3.93 M/mm3 (3.60-5.2) 06/20/20 05:36 Hgb 12.8 GM/dL (10.7-15.3) 06/20/20 05:36 Hct 37.4 % (32.4-45.2) 06/20/20 05:36 MCV 95.1 fl (80-96) 06/20/20 05:36 MCH 32.5 pg (25.7-33.7) 06/20/20 05:36 MCHC 34.2 g/dl (32.0-36.0) 06/20/20 05:36 RDW 13.4 % (11.6-15.6) 06/20/20 05:36 Plt Count 162 K/MM3 (134-434) 06/20/20 05:36 MPV 8.1 fl (7.5-11.1) 06/20/20 05:36 Absolute Neuts (auto) 2.9 K/mm3 (1.5-8.0) 06/18/20 18:50 Neutrophils % 58.9 % (42.8-82.8) D 06/18/20 18:50 Lymphocytes % 30.0 % (8-40) D 06/18/20 18:50 Monocytes % 9.8 % (3.8-10.2) 06/18/20 18:50 Eosinophils % 0.7 % (0-4.5) 06/18/20 18:50 Basophils % 0.6 % (0-2.0) 06/18/20 18:50 Nucleated RBC % 0 % (0-0) 06/18/20 18:50 PT with INR 13.00 SEC (9.7-13.0) 06/18/20 18:50 INR 1.10 (0.83-1.09) H 06/18/20 18:50 Sodium 136 mmol/L (136-145) 06/20/20 05:36 Potassium 3.8 mmol/L (3.5-5.1) 06/20/20 05:36 Chloride 104 mmol/L (98-107) 06/20/20 05:36 Carbon Dioxide 26 mmol/L (21-32) 06/20/20 05:36 Anion Gap 6 MMOL/L (8-16) L 06/20/20 05:36 BUN 14.0 mg/dL (7-18) 06/20/20 05:36 Creatinine 0.6 mg/dL (0.55-1.3) 06/20/20 05:36 Est GFR (CKD-EPI)AfAm 104.07 06/20/20 05:36 Est GFR (CKD-EPI)NonAf 89.79 06/20/20 05:36 Random Glucose 81 mg/dL (74-106) 06/20/20 05:36 Calcium 8.8 mg/dL (8.5-10.1) 06/20/20 05:36 Phosphorus 3.5 mg/dL (2.5-4.9) 06/20/20 05:36 Magnesium 2.1 mg/dL (1.8-2.4) 06/20/20 05:36 Total Bilirubin 0.3 mg/dL (0.2-1) 06/18/20 18:50 AST 14 U/L (15-37) L 06/18/20 18:50 ALT 17 U/L (13-61) 06/18/20 18:50 Alkaline Phosphatase 52 U/L (45-117) 06/18/20 18:50 Creatine Kinase 48 U/L (26-192) 06/18/20 18:50 Troponin I < 0.02 ng/ml (0.00-0.05) 06/19/20 03:30 B-Natriuretic Peptide 100.1 pg/ml (5-125) 06/18/20 18:50 Total Protein 6.8 g/dl (6.4-8.2) 06/18/20 18:50 Albumin 3.8 g/dl (3.4-5.0) 06/18/20 18:50 TSH 1.52 uIU/ml (0.358-3.74) 06/19/20 05:57 Free T4 1.32 ng/dl (0.76-1.46) 06/19/20 05:57 Free T3 3.3 pg/ml (2.0-4.4) 06/19/20 05:57 Urine Color Yellow 06/18/20 19:45 Urine Appearance Clear 06/18/20 19:45 Urine pH 7.5 (5.0-8.0) D 06/18/20 19:45 Ur Specific [place] 1.007 (1.010-1.035) L 06/18/20 19:45 Urine Protein Negative (NEGATIVE) 06/18/20 19:45 Urine Glucose (UA) Negative (NEGATIVE) 06/18/20 19:45 Urine Ketones Negative (NEGATIVE) 06/18/20 19:45 Urine Blood Negative (NEGATIVE) 06/18/20 19:45 Urine Nitrite Negative (NEGATIVE) 06/18/20 19:45 Urine Bilirubin Negative (NEGATIVE) 06/18/20 19:45 Urine Urobilinogen 0.2 mg/dL (0.2-1.0) 06/18/20 19:45 Ur Leukocyte Esterase Negative (NEGATIVE) 06/18/20 19:45 COVID-19 (MANAV) Not detected (Not Detected) 06/18/20 21:00 Assessment/Plan Event monitor 10/2018 brief run of SVT vs NSVT (6 beats), asymptomatic EKG 10/2018 sinus, nl intervals, no ischemic chnages EKG 09/2018 DFH: sinus bradycardia, no ischemic changes Echo 04/2018 nl LV/RV function, mild MR, mild prolapse of post leaflet of MV, trace TR. echo 06/2020 nl LV function, nl RV, grade I diastolic dysfunction, mild MR, mild TR, PASP 34 mmHg, mild AR EKG: sinus, nl intervals, no ischemic changes tele: sinus with episode of sinus dea at 3 AM, no AV block 74F h/o partial colectomy, mitral valve prolapse p/w palpitations, dizziness, cold sweats, nausea bradycardia, presyncope, palpitations - sinus bradycardia noted on tele - reviewed tele strips with EP at [facility] [place], likely vagal episode in setting of nausea - no indication for pacemaker - echo unremarkable - will arrange for outpatient event monitor and follow up nausea, history of abd pain, colectomy, diverticulosis - manage per primary mitral valve prolapse - mild prolapse of posterior leaflet with mild MR in 2017, repeat echo pending stable for dc from cardiac perspective
== END 2020-06-20 15:56 | disposition home or self-care (01) ==
LOC: JER 17:26 → JERBED 21:36 → INTOOBSV 21:53 → UNDOADMOB 21:53 → J4W 06-19 18:09
PROVIDERS: ADMIT Internal Medicine; ATTEND Student in an Organized Health Care Education/Training Program
PROC: 3E033GC Introduction of Other Therapeutic Substance into Peripheral Vein, Percutaneous Approach (ICD-10-PCS; principal; 2020-06-18)
PROC: 3E0337Z Introduction of Electrolytic and Water Balance Substance into Peripheral Vein, Percutaneous Approach (ICD-10-PCS; 2020-06-18)
DX: R55 Syncope and collapse (principal); K92.9 Disease of digestive system, unspecified; I34.1 Nonrheumatic mitral (valve) prolapse; I47.1 Supraventricular tachycardia; Z88.8 Allergy status to other drugs, medicaments and biological substances; Z87.891 Personal history of nicotine dependence
CPT/HCPCS: 36415; 71046-TC-FY; 80048; 80053; 81003; 82550; 83735; 83880; 84100; 84439; 84443; 84481; 84484; 85025; 85027; 85610; 87086; 93005; 93010; 93306-TC; 96374; 97116-GP; 97161-GP; 99285-25; C9803; G0378; U0003

== ENCOUNTER 2022-03-10 03:12 | Emergency (ER) | payer OTHER, MEDICARE ==
[2022-03-10] MEDS ORDERED: ONDANSETRON 4 MG/2 ML VIAL ONE (03:16)
[2022-03-10] MEDS ORDERED: ONDANSETRON 4 MG/2 ML VIAL IVPUSH ONE (03:19)
[2022-03-10] MEDS ORDERED: SODIUM CHLORIDE 0.9% 500 ML INFUS.BAG IV ONE (03:19)
[2022-03-10] MEDS ORDERED: ACETAMINOPHEN 1000 MG/100 ML BAG IVPB ONE (03:20)
[2022-03-10] MEDS ORDERED: ACETAMINOPHEN INJECTION 100 ML IVPB ONE (03:22)
[2022-03-10 03:40] VITALS: BMI 18.8
[2022-03-10 03:56] VITALS: PULSE 68
[2022-03-10 04:02] LABS: HEMOGLOBIN 13.2 GM/dL (10.7-15.3)
[2022-03-10 04:03] LABS: URINE APPEARANCE CLEAR; URINE BILIRUBIN NEGATIVE (NEGATIVE); URINE COLOR YELLOW; URINE GLUCOSE (UA) NEGATIVE (NEGATIVE); URINE KETONE NEGATIVE (NEGATIVE); URINE LEUK ESTERASE NEGATIVE (NEGATIVE); URINE NITRITE NEGATIVE (NEGATIVE); URINE PROTEIN NEGATIVE (NEGATIVE); URINE UROBILINOGEN 0.2 mg/dL (0.2-1.0)
[2022-03-10 04:09] LABS: BASO % 0.3 % (0-2.0); EOS % 0.2 % (0-4.5); HEMATOCRIT 38.9 % (32.4-45.2); LYMPH % 23.1 % (8-40); MCH 31.7 pg (25.7-33.7); MCHC 33.9 g/dl (32.0-36.0); MEAN CELL VOLUME 93.6 fl (80-96); MONO % 5.5 % (3.8-10.2); NEUT % 70.9 % (42.8-82.8); RBC 4.16 M/mm3 (3.60-5.2); RDW 14.1 % (11.6-15.6); WHITE BLOOD COUNT 7.6 K/mm3 (4.0-10.0)
[2022-03-10 04:23] LABS: ALBUMIN 3.7 g/dl (3.4-5.0); CALCIUM 8.7 mg/dL (8.5-10.1)
[2022-03-10 04:24] LABS: BLOOD UREA NITROGEN 16.4 mg/dL (7-18)
[2022-03-10 04:26] LABS: CREATININE 0.7 mg/dL (0.55-1.3)
[2022-03-10 04:28] LABS: BILIRUBIN,TOTAL 0.4 mg/dL (0.2-1); TOT PROT 6.7 g/dl (6.4-8.2)
[2022-03-10 08:34] VITALS: BP 154/66; TEMP 98.8
== END 2022-03-10 09:02 | disposition home or self-care (01) ==
LOC: FER 03:12
PROC: 3E0333Z Introduction of Anti-inflammatory into Peripheral Vein, Percutaneous Approach (ICD-10-PCS; principal; 2022-03-10)
PROC: 3E033GC Introduction of Other Therapeutic Substance into Peripheral Vein, Percutaneous Approach (ICD-10-PCS; 2022-03-10)
DX: K56.600 Partial intestinal obstruction, unspecified as to cause (principal)
CPT/HCPCS: 0241U-QW; 36415; 71045-TC-FY; 74176-TC; 80053; 81003; 83605; 85025; 93005; 99285-25

== ENCOUNTER 2022-05-25 15:58 | Emergency (ER) | payer OTHER, MEDICARE ==
[2022-05-25] MEDS ORDERED: ACETAMINOPHEN 1000 MG/100 ML BAG IVPB ONE (16:08)
[2022-05-25] MEDS ORDERED: FAMOTIDINE 20 MG/50 ML IVPB 20 MG/50 ML MG IVPB ONE ×2 (16:08→16:24)
[2022-05-25] MEDS ORDERED: ONDANSETRON 4 MG/2 ML VIAL IVPUSH ONE (16:08)
[2022-05-25] MEDS ORDERED: SODIUM CHLORIDE 0.9% 1000 ML INFUS.BAG IV ONE (16:08)
[2022-05-25] MEDS ORDERED: MAG HYDROX/AL HYDROX/SIMETH 30 ML UNIT-DOSE CUP PO ONE (16:09)
[2022-05-25 16:14] VITALS: BP 194/72; PULSE 74; RESP 20; TEMP 98.1; BMI 18.0
[2022-05-25] MEDS ORDERED: ONDANSETRON 4 MG/2 ML VIAL ONE (16:16)
[2022-05-25] MEDS ORDERED: ACETAMINOPHEN INJECTION 100 ML IVPB ONE (16:16)
[2022-05-25] MEDS ORDERED: MAG HYDROX/AL HYDROX/SIMETH 30 ML UNIT-DOSE CUP ONE (16:16)
[2022-05-25 17:16] LABS: HEMATOCRIT 40.1 % (32.4-45.2); HEMOGLOBIN 13.8 G/dL (10.7-15.3); MCH 32.7 pg (25.7-33.7); MCHC 34.5 g/dl (32.0-36.0); MEAN CELL VOLUME 94.8 fl (80-96); MEAN PLT VOLUME 11.9 fl (7.5-11.1); PLATELET COUNT 69.6 10^3/uL (134-434); RBC 4.23 10^6/uL (3.60-5.2); RDW 14.3 % (11.6-15.6); WHITE BLOOD COUNT 6.2 10^3/uL (4.0-10.8)
[2022-05-25 17:19] LABS: ALBUMIN 4.4 g/dl (3.4-5.0); BILIRUBIN,TOTAL 0.8 mg/dl (0.2-1); CALCIUM 9.4 mg/dl (8.5-10); CREATININE 0.7 mg/dl (0.55-1.3); TOT PROT 6.8 g/dl (6.4-8.2)
[2022-05-25 17:36] LABS: ACTIVATED PTT 29.1 SECONDS (25.2-36.5)
[2022-05-25] MEDS ORDERED: MAGNESIUM HYDROX 2400MG/30ML ORAL SUSPENSION 30 ML CUP PO ONE (18:03)
[2022-05-25 18:05] LABS: PLATELET ESTIMATE SLT DECREASE
[2022-05-25 18:06] LABS: INR 1.09 (0.83-1.09); PROTHROMBIN TIME (PATIENT) 12.5 SEC (9.7-13.0)
[2022-05-25] MEDS ORDERED: MAGNESIUM HYDROX 2400MG/30ML ORAL SUSPENSION 30 ML CUP ONE (18:30)
== END 2022-05-25 18:53 | disposition home or self-care (01) ==
LOC: FER 15:58
PROC: 3E0333Z Introduction of Anti-inflammatory into Peripheral Vein, Percutaneous Approach (ICD-10-PCS; principal; 2022-05-25)
PROC: 3E033GC Introduction of Other Therapeutic Substance into Peripheral Vein, Percutaneous Approach (ICD-10-PCS; 2022-05-25)
PROC: 3E033GC Introduction of Other Therapeutic Substance into Peripheral Vein, Percutaneous Approach (ICD-10-PCS; 2022-05-25)
DX: K59.00 Constipation, unspecified (principal); R10.9 Unspecified abdominal pain
CPT/HCPCS: 36415; 71045-TC-FY; 74176-TC; 80053; 81003; 81015; 83605; 83690; 84484; 85027; 85610; 85730; 99285-25

== ENCOUNTER 2022-05-27 06:00 | Emergency (ER) | payer OTHER, MEDICARE ==
[2022-05-27 06:15] VITALS: BP 124/68; PULSE 80; RESP 18; TEMP 98.1; BMI 17.2
[2022-05-27] MEDS ORDERED: FAMOTIDINE 20 MG/50 ML IVPB 20 MG/50 ML MG IVPB ONE ×2 (06:21→06:31)
[2022-05-27] MEDS ORDERED: SODIUM CHLORIDE 1,000 ML IV STA (06:21)
[2022-05-27] MEDS ORDERED: ONDANSETRON 4 MG/2 ML VIAL IVPUSH ONE (06:21)
[2022-05-27] MEDS ORDERED: ACETAMINOPHEN 1000 MG/100 ML BAG IVPB ONE (06:22)
[2022-05-27] MEDS ORDERED: ONDANSETRON 4 MG/2 ML VIAL ONE (06:30)
[2022-05-27] MEDS ORDERED: ACETAMINOPHEN INJECTION 100 ML IVPB ONE (06:31)
[2022-05-27] MEDS ORDERED: PANTOPRAZOLE SODIUM 40 MG VIAL IVPB ONE (06:54)
[2022-05-27] MEDS ORDERED: PANTOPRAZOLE SODIUM 40 MG VIAL ONE (06:54)
[2022-05-27 07:07] LABS: HEMATOCRIT 40.4 % (32.4-45.2); HEMOGLOBIN 13.7 G/dL (10.7-15.3); MCH 32.2 pg (25.7-33.7); MCHC 33.8 g/dl (32.0-36.0); MEAN CELL VOLUME 95.3 fl (80-96); MEAN PLT VOLUME 9.9 fl (7.5-11.1); RBC 4.24 10^6/uL (3.60-5.2); WHITE BLOOD COUNT 5.1 10^3/uL (4.0-10.8)
[2022-05-27 07:31] LABS: ALBUMIN 4.3 g/dl (3.4-5.0); BILIRUBIN,TOTAL 1.1 mg/dl (0.2-1); CALCIUM 9.2 mg/dl (8.5-10); CREATININE 0.7 mg/dl (0.55-1.3); TOT PROT 6.6 g/dl (6.4-8.2)
[2022-05-27 07:57] LABS: PLATELET ESTIMATE INCREASED
[2022-05-27 07:59] LABS: PLATELET COUNT 450 10^3/uL (134-434)
== END 2022-05-27 08:59 | disposition home or self-care (01) ==
LOC: FER 06:00
PROC: 3E033NZ Introduction of Analgesics, Hypnotics, Sedatives into Peripheral Vein, Percutaneous Approach (ICD-10-PCS; principal; 2022-05-27)
PROC: 3E033GC Introduction of Other Therapeutic Substance into Peripheral Vein, Percutaneous Approach (ICD-10-PCS; 2022-05-27)
PROC: 3E033GC Introduction of Other Therapeutic Substance into Peripheral Vein, Percutaneous Approach (ICD-10-PCS; 2022-05-27)
PROC: 3E0337Z Introduction of Electrolytic and Water Balance Substance into Peripheral Vein, Percutaneous Approach (ICD-10-PCS; 2022-05-27)
PROC: 3E033GC Introduction of Other Therapeutic Substance into Peripheral Vein, Percutaneous Approach (ICD-10-PCS; 2022-05-27)
DX: K21.9 Gastro-esophageal reflux disease without esophagitis (principal); R10.13 Epigastric pain
CPT/HCPCS: 36415; 80053; 85027; 99284-25

== ENCOUNTER 2022-06-16 11:53 | Day surgery (SDC) | payer OTHER, MEDICARE ==
[2022-06-11 15:17] VITALS: BMI 17.2
[2022-06-16 12:19] VITALS: RESP 16
[2022-06-16 13:23] VITALS: TEMP 98
[2022-06-16 13:43] VITALS: BP 177/70; PULSE 70
== END 2022-06-16 13:55 | disposition home or self-care (01) ==
LOC: FASU-ENDO 11:53
PROVIDERS: ATTEND Internal Medicine Gastroenterology
PROC: 0DB68ZX Excision of Stomach, Via Natural or Artificial Opening Endoscopic, Diagnostic (ICD-10-PCS; 2022-06-16)
PROC: 0DB98ZX Excision of Duodenum, Via Natural or Artificial Opening Endoscopic, Diagnostic (ICD-10-PCS; principal; 2022-06-16 13:01)
DX: K29.50 Unspecified chronic gastritis without bleeding (principal); K44.9 Diaphragmatic hernia without obstruction or gangrene; R68.81 Early satiety; R63.4 Abnormal weight loss
CPT/HCPCS: 88305-TC; 88342-TC